=== PATIENT | male | born 1935 | race Two or more races ===

== ENCOUNTER → 2017-07-21 | Outpatient (CLI) | payer OTHER ==
[2017-07-21 11:55] LABS: Basophils # (auto) 0 uL; Basophils % (auto) 0.6 % (0.0-2.0); Eosinophils # (auto) 0.1 uL; Eosinophils % (auto) 0.7 % (0.0-7.0); Hematocrit 47.3 % (41.0-53.0); Lymphocytes # (auto) 1.4 uL; Lymphocytes % (auto) 17.4 % (10.0-50.0); Mean Corpuscular Hemoglobin 32.1 pg (28.0-32.0); Mean Corpuscular Hgb Conc. 33.9 g/dL (32.0-36.0); Mean Corpuscular Volume 94.7 fL (80.0-100.0); Monocytes # (auto) 0.8 uL; Monocytes % (auto) 9.7 % (0.0-12.0); Neutrophils # (auto) 5.6 uL; Neutrophils % (auto) 71.6 % (37.0-80.0); Nucleated Red Blood Cells % 0.1 %; Platelet Count (auto) 168 10^3/uL (140-450); Red Cell Distribution Width 13.7 % (11.8-14.3); White Blood Cell 7.8 10^3/uL (4.4-10.8)
[2017-07-21 14:01] LABS: Albumin 4.1 g/dL (3.4-5.0); BUN/Creatinine Ratio 20.4; Bilirubin, Total 0.8 mg/dL (0.2-1.0); Calcium 9.1 mg/dL (8.5-10.1); Potassium 4.6 mmol/L (3.5-5.1); Total Protein 7.8 g/dL (6.4-8.2)
== END | disposition home or self-care (01) ==
LOC: LAB 10:52
PROVIDERS: ATTEND Physician Assistant
DX: I12.9 Hypertensive chronic kidney disease with stage 1 through stage 4 chronic kidney disease, or unspecified chronic kidney disease (principal); N18.2 Chronic kidney disease, stage 2 (mild); E78.5 Hyperlipidemia, unspecified; Z95.1 Presence of aortocoronary bypass graft; B02.29 Other postherpetic nervous system involvement; R79.89 Other specified abnormal findings of blood chemistry
CPT/HCPCS: 36415; 80053; 80061; 84153; 85025

== ENCOUNTER 2019-12-18 10:22 | Emergency (ER) | payer OTHER ==
[~2019-12-18] VITALS: Ht 165.1 cm; Wt 59.0 kg
[2019-12-18 10:33] VITALS: BP 110/67
[2019-12-18 12:00] LABS: Basophils # (auto) 0.1 10 ^3/uL (0-0.2); Basophils % (auto) 0.6 % (0.0-2.0); Eosinophils # (auto) 0.1 10 ^3/uL (0-0.8); Eosinophils % (auto) 1.1 % (0.0-7.0); Hematocrit 42.9 % (41.0-53.0); Hemoglobin 14.3 g/dL (13.5-17.5); Lymphocytes % (auto) 10.2 % (10.0-50.0); Mean Corpuscular Hgb Conc. 33.5 g/dL (32.0-36.0); Mean Corpuscular Volume 89.5 fL (80.0-100.0); Monocytes # (auto) 1.3 10 ^3/uL (0-1.3); Monocytes % (auto) 12.7 % (0.0-12.0); Neutrophils # (auto) 7.5 10 ^3/uL (1.6-8.6); Neutrophils % (auto) 75.4 % (37.0-80.0); Platelet Count (auto) 166 10^3/uL (140-450); Red Blood Cells 4.79 10^6/uL (4.5-5.90); Red Cell Distribution Width 15.2 % (11.8-14.3); White Blood Cell 9.9 10^3/uL (4.4-10.8)
[2019-12-18 12:15] LABS: Albumin 3.6 g/dL (3.4-5.0); Anion Gap 5 (5-15); Blood Urea Nitrogen 17 mg/dL (7-18); Calcium 8.8 mg/dL (8.5-10.1); Carbon Dioxide 33 mmol/L (21-32); Chloride 101 mmol/L (98-107); Glucose 101 mg/dL (74-106); Magnesium 2.5 mg/dL (1.6-2.6); Potassium 3.4 mmol/L (3.5-5.1); Sodium 139 mmol/L (136-145)
[2019-12-18 12:18] LABS: INR 0.99 (0.9-1.15)
[2019-12-18 12:22] LABS: Alanine Aminotransferase 17 U/L (16-61); Alkaline Phosphatase 115 U/L (45-117); Aspartate Aminotransferase 20 U/L (15-37); BUN/Creatinine Ratio 17.5; Bilirubin, Total 1.1 mg/dL (0.2-1.0); GFR African American 95 mL/min; GFR Non-African American 79 mL/min; Total Protein 6.8 g/dL (6.4-8.2)
== END 2019-12-18 15:15 | disposition left against medical advice (07) ==
LOC: ER 10:22
DX: R51 Headache (principal); Z53.21 Procedure and treatment not carried out due to patient leaving prior to being seen by health care provider
CPT/HCPCS: 36415; 80053; 83735; 84484; 85025; 85610; 93005

== ENCOUNTER → 2020-02-07 | Outpatient (CLI) | payer OTHER ==
[2020-02-07 08:31] LABS: Basophils # (auto) 0.1 10 ^3/uL (0-0.2); Basophils % (auto) 0.7 % (0.0-2.0); Eosinophils # (auto) 0.2 10 ^3/uL (0-0.8); Eosinophils % (auto) 2.4 % (0.0-7.0); Hematocrit 42.1 % (41.0-53.0); Hemoglobin 14.2 g/dL (13.5-17.5); Lymphocytes # (auto) 1.4 10 ^3/uL (0.4-5.4); Lymphocytes % (auto) 18.6 % (10.0-50.0); Mean Corpuscular Hemoglobin 30.2 pg (28.0-32.0); Mean Corpuscular Hgb Conc. 33.8 g/dL (32.0-36.0); Mean Corpuscular Volume 89.5 fL (80.0-100.0); Monocytes # (auto) 0.9 10 ^3/uL (0-1.3); Monocytes % (auto) 12.4 % (0.0-12.0); Neutrophils % (auto) 65.9 % (37.0-80.0); Nucleated Red Blood Cells % 0.1 %; Platelet Count (auto) 172 10^3/uL (140-450); Red Blood Cells 4.71 10^6/uL (4.5-5.90); Red Cell Distribution Width 14.7 % (11.8-14.3); White Blood Cell 7.6 10^3/uL (4.4-10.8)
[2020-02-07 09:13] LABS: Albumin 3.5 g/dL (3.4-5.0); Calcium 8.5 mg/dL (8.5-10.1); Potassium 3.8 mmol/L (3.5-5.1)
[2020-02-07 09:19] LABS: BUN/Creatinine Ratio 14.6; Bilirubin, Total 0.8 mg/dL (0.2-1.0); Total Protein 6.6 g/dL (6.4-8.2)
== END | disposition home or self-care (01) ==
LOC: LAB 08:15
PROVIDERS: ATTEND Physician Assistant
DX: I12.9 Hypertensive chronic kidney disease with stage 1 through stage 4 chronic kidney disease, or unspecified chronic kidney disease (principal); N18.2 Chronic kidney disease, stage 2 (mild); R35.1 Nocturia; I50.22 Chronic systolic (congestive) heart failure; D69.6 Thrombocytopenia, unspecified; E78.5 Hyperlipidemia, unspecified; R79.89 Other specified abnormal findings of blood chemistry
CPT/HCPCS: 36415; 80053; 80061; 84153; 85025

== ENCOUNTER → 2020-10-20 | Outpatient (CLI) | payer OTHER ==
[2020-10-20 10:02] LABS: Basophils # (auto) 0 10 ^3/uL (0-0.2); Basophils % (auto) 0.8 % (0.0-2.0); Eosinophils # (auto) 0.1 10 ^3/uL (0-0.8); Eosinophils % (auto) 1.6 % (0.0-7.0); Hematocrit 42.8 % (41.0-53.0); Hemoglobin 14.5 g/dL (13.5-17.5); Lymphocytes % (auto) 17.4 % (10.0-50.0); Mean Corpuscular Hemoglobin 30.5 pg (28.0-32.0); Mean Corpuscular Hgb Conc. 33.9 g/dL (32.0-36.0); Monocytes # (auto) 0.6 10 ^3/uL (0-1.3); Monocytes % (auto) 10.7 % (0.0-12.0); Neutrophils # (auto) 4.1 10 ^3/uL (1.6-8.6); Neutrophils % (auto) 69.5 % (37.0-80.0); Nucleated Red Blood Cells % 0.2 %; Platelet Count (auto) 122 10^3/uL (140-450); Red Blood Cells 4.76 10^6/uL (4.5-5.90); Red Cell Distribution Width 14.6 % (11.8-14.3); White Blood Cell 5.9 10^3/uL (4.4-10.8)
[2020-10-20 10:25] LABS: Albumin 3.5 g/dL (3.4-5.0); Calcium 8.6 mg/dL (8.5-10.1)
[2020-10-20 10:31] LABS: BUN/Creatinine Ratio 20.2; Bilirubin, Total 0.6 mg/dL (0.2-1.0); Total Protein 6.6 g/dL (6.4-8.2)
== END | disposition home or self-care (01) ==
LOC: LAB 09:32
PROVIDERS: ATTEND Internal Medicine
DX: I10 Essential (primary) hypertension (principal); R35.1 Nocturia
CPT/HCPCS: 36415; 80053; 80061; 84153; 84403; 84443; 85025

== ENCOUNTER → 2020-11-27 | Outpatient (CLI) | payer OTHER ==
[2020-11-27 08:36] LABS: Basophils # (auto) 0.1 10 ^3/uL (0-0.2); Basophils % (auto) 0.9 % (0.0-2.0); Eosinophils # (auto) 0.2 10 ^3/uL (0-0.8); Eosinophils % (auto) 2.8 % (0.0-7.0); Hematocrit 43.7 % (41.0-53.0); Hemoglobin 14.6 g/dL (13.5-17.5); Lymphocytes # (auto) 1.4 10 ^3/uL (0.4-5.4); Lymphocytes % (auto) 17.7 % (10.0-50.0); Mean Corpuscular Hgb Conc. 33.4 g/dL (32.0-36.0); Mean Corpuscular Volume 89.8 fL (80.0-100.0); Monocytes % (auto) 13.3 % (0.0-12.0); Neutrophils % (auto) 65.3 % (37.0-80.0); Red Blood Cells 4.87 10^6/uL (4.5-5.90); Red Cell Distribution Width 15.3 % (11.8-14.3); White Blood Cell 7.7 10^3/uL (4.4-10.8)
[2020-11-27 09:49] LABS: Albumin 3.4 g/dL (3.4-5.0); Calcium 8.4 mg/dL (8.5-10.1); Potassium 3.7 mmol/L (3.5-5.1)
[2020-11-27 09:53] LABS: BUN/Creatinine Ratio 13.3; Bilirubin, Total 0.5 mg/dL (0.2-1.0); Total Protein 6.3 g/dL (6.4-8.2)
== END | disposition home or self-care (01) ==
LOC: LAB 07:56
PROVIDERS: ATTEND Nurse Practitioner Family
DX: I50.22 Chronic systolic (congestive) heart failure (principal); N18.2 Chronic kidney disease, stage 2 (mild); E78.5 Hyperlipidemia, unspecified; R35.1 Nocturia
CPT/HCPCS: 36415; 80053; 80061; 84153; 85025

== ENCOUNTER → 2020-12-15 | Outpatient (CLI) | payer OTHER | END | disposition home or self-care (01) | LOC: XYW 09:33 | PROVIDERS: ATTEND Internal Medicine | DX: I08.8 Other rheumatic multiple valve diseases (principal); I50.22 Chronic systolic (congestive) heart failure | CPT/HCPCS: 93306 ==

== ENCOUNTER → 2020-12-18 | Outpatient (CLI) | payer OTHER | END | disposition home or self-care (01) | LOC: LAB 09:41 | PROVIDERS: ATTEND Physician Assistant | DX: Z20.822 Contact with and (suspected) exposure to COVID-19 (principal) | CPT/HCPCS: 36415; 87426 ==

== ENCOUNTER → 2020-12-21 | Outpatient (CLI) | payer OTHER ==
[~2020-12-21] VITALS: Ht 165.1 cm; Wt 59.0 kg
[~2020-12-21] MED LIST: ADENOSINE 50 MG in GIVE UN-DILUTED 0 ML IV STA
== END | disposition home or self-care (01) ==
LOC: XY 08:00
PROVIDERS: ATTEND Internal Medicine
DX: I10 Essential (primary) hypertension (principal); I25.10 Atherosclerotic heart disease of native coronary artery without angina pectoris; E78.5 Hyperlipidemia, unspecified; I35.1 Nonrheumatic aortic (valve) insufficiency
CPT/HCPCS: 78452; 93017; A9500; J0153

== ENCOUNTER → 2022-01-28 | Outpatient (CLI) | payer OTHER ==
[2022-01-28 11:50] LABS: Basophils # (auto) 0.1 10 ^3/uL (0-0.2); Basophils % (auto) 0.6 % (0.0-2.0); Eosinophils # (auto) 0.2 10 ^3/uL (0-0.8); Eosinophils % (auto) 2.2 % (0.0-7.0); Hematocrit 41.8 % (41.0-53.0); Hemoglobin 13.8 g/dL (13.5-17.5); Lymphocytes # (auto) 1.2 10 ^3/uL (0.4-5.4); Lymphocytes % (auto) 12.9 % (10.0-50.0); Mean Corpuscular Hgb Conc. 33.1 g/dL (32.0-36.0); Mean Corpuscular Volume 93.7 fL (80.0-100.0); Monocytes # (auto) 0.8 10 ^3/uL (0-1.3); Monocytes % (auto) 8.5 % (0.0-12.0); Neutrophils % (auto) 75.8 % (37.0-80.0); Red Blood Cells 4.47 10^6/uL (4.5-5.90); Red Cell Distribution Width 14.9 % (11.8-14.3); White Blood Cell 9.3 10^3/uL (4.4-10.8)
[2022-01-28 12:55] LABS: Potassium 4.4 mmol/L (3.5-5.1)
[2022-01-28 13:45] LABS: Albumin 3.2 g/dL (3.4-5.0); BUN/Creatinine Ratio 15.2; Bilirubin, Total 0.7 mg/dL (0.2-1.0); Calcium 8.3 mg/dL (8.5-10.1); Total Protein 6.4 g/dL (6.4-8.2)
== END | disposition home or self-care (01) ==
LOC: LAB 11:23
PROVIDERS: ATTEND Nurse Practitioner Family
DX: Z00.00 Encounter for general adult medical examination without abnormal findings (principal); E78.5 Hyperlipidemia, unspecified; R35.1 Nocturia; I42.9 Cardiomyopathy, unspecified
CPT/HCPCS: 36415; 80053; 80061; 84153; 85025

== ENCOUNTER 2022-04-04 15:57 | Inpatient (IN) | payer OTHER ==
[~2022-04-04] VITALS: Ht 165.1 cm; Wt 61.5 kg
[2022-04-04] MEDS ORDERED: SODIUM CHLORIDE 0.9% 1,000 ML IV ONE ×2 (16:30→18:15)
[2022-04-04] MEDS ORDERED: ACETAMINOPHEN 325 MG TAB PO ONE (16:30)
[2022-04-04] MEDS ORDERED: IBUPROFEN 400 MG TAB PO ONE (16:30)
[2022-04-04 17:02] LABS: Hemoglobin 14.8 g/dL (13.5-17.5); Mean Corpuscular Hemoglobin 30.5 pg (28.0-32.0); White Blood Cell 11.7 10^3/uL (4.4-10.8)
[2022-04-04 17:07] LABS: Hematocrit 44.1 % (41.0-53.0); Mean Corpuscular Hgb Conc. 33.5 g/dL (32.0-36.0); Mean Corpuscular Volume 90.9 fL (80.0-100.0); Red Blood Cells 4.86 10^6/uL (4.5-5.90); Red Cell Distribution Width 13.8 % (11.8-14.3)
[2022-04-04 17:10] LABS: Basophils % (manual) 0 (0.0-2.0); Blast Cells 0; Eosinophils % (manual) 0 (0-7); Metamyelocytes % 0; Myelocytes % 0; Promyelocytes % 0; Reactive Lymphocytes 0
[2022-04-04 17:18] LABS: Albumin 3.2 g/dL (3.4-5.0); Calcium 8.5 mg/dL (8.5-10.1); Potassium 4.2 mmol/L (3.5-5.1)
[2022-04-04 17:22] LABS: BUN/Creatinine Ratio 17.3; Bilirubin, Total 0.5 mg/dL (0.2-1.0); Total Protein 6.6 g/dL (6.4-8.2)
[2022-04-04] MEDS ORDERED: ERYTHROMY OPTH OINT 5mg/gm 1gm or 3.5gm tube OP ONE (18:07)
[2022-04-04] MEDS ORDERED: ERYTHROMY OPTH OINT 5mg/gm 1gm or 3.5gm tube OP SCH (18:15)
[2022-04-04] MEDS: ERYTHROMY OPTH OINT 5mg/gm 1gm or 3.5gm tube OP SCH ×2 (18:26→23:36)
[2022-04-04] MEDS: AMPICILLIN & SULBACTAM SODIUM 3 GM in SODIUM CHL 0.9% 100 ML IV SCH ×2 (18:36→23:36)
[2022-04-04 18:40] LABS: Band Neutrophils % (manual) 5; Lymphocytes % (manual) 13 (10.0-50.0); Monocytes % (manual) 20 (0-12)
[2022-04-04] MEDS ORDERED: SODIUM CHLORIDE 0.9% 1,000 ML IV SCH (18:45)
[2022-04-04] MEDS ORDERED: ACETAMINOPHEN 325 MG TAB PO PRN (18:45)
[2022-04-04 19:44] LABS: Urine Bacteria FEW /hpf (None Seen); Urine Blood TRACE /uL (Negative); Urine Specific Gravity 1.008 (1.001-1.035); Urine WBC <1 /hpf (0 - 3)
[2022-04-04 22:00] VITALS: BP 131/77
[2022-04-04] MEDS: ASCORBIC ACID 500 MG TAB PO SCH (23:36)
[2022-04-05] MEDS ORDERED: GABA100C9 PO (04:02)
[2022-04-05] MEDS ORDERED: ROPI0.254 PO (04:02)
[2022-04-05] MEDS ORDERED: ASPI1TAB20 PO (04:02)
[2022-04-05] MEDS ORDERED: ATOR10TA PO (04:02)
[2022-04-05 05:00] VITALS: BP 149/87
[2022-04-05 06:11] LABS: Potassium 4.2 mmol/L (3.5-5.1)
[2022-04-05 06:18] LABS: BUN/Creatinine Ratio 17.3; Bilirubin, Total 0.7 mg/dL (0.2-1.0); Calcium 8.1 mg/dL (8.5-10.1); Total Protein 6.2 g/dL (6.4-8.2)
[2022-04-05] MEDS: AMPICILLIN & SULBACTAM SODIUM 3 GM in SODIUM CHL 0.9% 100 ML IV SCH ×2 (06:27→10:26)
[2022-04-05] MEDS: ERYTHROMY OPTH OINT 5mg/gm 1gm or 3.5gm tube OP SCH ×2 (06:28→10:26)
[2022-04-05 09:00] VITALS: BP 151/82
[2022-04-05] MEDS ORDERED: ERY05OO OP (09:58)
[2022-04-05] MEDS ORDERED: LEVO500T31 PO (09:58)
[2022-04-05] MEDS ORDERED: ZINC SULFATE 220mg CAP or TAB PO SCH (10:00)
[2022-04-05] MEDS ORDERED: AZITHROMYCIN 500MG/ 250ML 250 ML IV SCH (10:00)
[2022-04-05] MEDS ORDERED: MULTIPLE VITAMIN TAB PO SCH (10:00)
[2022-04-05] MEDS ORDERED: ENOXAPARIN SOD 40 MG/0.4 ML SYRINGE SC SCH (10:00)
[2022-04-05] MEDS: ASCORBIC ACID 500 MG TAB PO SCH (10:20)
== END 2022-04-05 12:10 | disposition home or self-care (01) | DRG 202 ==
LOC: ER 15:57 → OVERFLOW 18:40 → EAST 21:48
PROVIDERS: ADMIT Nurse Practitioner Family; ATTEND Nurse Practitioner Family
DX: J20.9 Acute bronchitis, unspecified (principal); J18.9 Pneumonia, unspecified organism; H10.33 Unspecified acute conjunctivitis, bilateral; I25.2 Old myocardial infarction; Z20.822 Contact with and (suspected) exposure to COVID-19; Z87.891 Personal history of nicotine dependence; Z95.1 Presence of aortocoronary bypass graft
CPT/HCPCS: 36415; 71045; 80053; 81001; 83605; 83880; 84484; 85007; 85027; 87040; 87426; 87804; 87807; 93005; 96360; 96361; G0378

== ENCOUNTER 2022-11-04 12:04 | Inpatient (IN) | payer OTHER ==
[~2022-11-04] VITALS: Ht 165.1 cm; Wt 63.2 kg
[~2022-11-04 12:04] MED LIST changes: -ADENOSINE 50 MG in GIVE UN-DILUTED 0 ML IV STA; +ASPI1TAB20 PO; +ATOR10TA PO; +ERY05OO OP; +GABA-1308 PO; +LEVO500T31 PO; +ROPI0.254 PO
[2022-11-04 13:32] LABS: Basophils # (auto) 0.1 10 ^3/uL (0-0.2); Basophils % (auto) 0.8 % (0.0-2.0); Eosinophils # (auto) 0.1 10 ^3/uL (0-0.8); Eosinophils % (auto) 1.8 % (0.0-7.0); Hematocrit 41.2 % (41.0-53.0); Hemoglobin 13.7 g/dL (13.5-17.5); Lymphocytes # (auto) 0.9 10 ^3/uL (0.4-5.4); Lymphocytes % (auto) 12.5 % (10.0-50.0); Mean Corpuscular Hemoglobin 30.5 pg (28.0-32.0); Mean Corpuscular Hgb Conc. 33.2 g/dL (32.0-36.0); Monocytes # (auto) 0.8 10 ^3/uL (0-1.3); Monocytes % (auto) 11.2 % (0.0-12.0); Neutrophils # (auto) 5.2 10 ^3/uL (1.6-8.6); Neutrophils % (auto) 73.7 % (37.0-80.0); Red Blood Cells 4.47 10^6/uL (4.5-5.90); Red Cell Distribution Width 14.8 % (11.8-14.3)
[2022-11-04 14:17] LABS: Albumin 3.4 g/dL (3.4-5.0); Potassium 4.2 mmol/L (3.5-5.1)
[2022-11-04 14:22] LABS: BUN/Creatinine Ratio 25.3 (10.0-20.0); Bilirubin, Total 0.4 mg/dL (0.2-1.0); Total Protein 6.1 g/dL (6.4-8.2)
[2022-11-04 15:18] LABS: Urine Bacteria NONE SEEN /hpf (None Seen); Urine Blood TRACE /uL (Negative); Urine Mucus FEW (None Seen); Urine Specific Gravity 1.035 (1.001-1.035); Urine WBC 1 /hpf (0 - 3)
[2022-11-04] MEDS ORDERED: CLINDAMYCIN HCL 150 MG CAP PO ONE (16:00)
[2022-11-04] MEDS ORDERED: cefTRIAXone 1GM/50ML D5W 50 ML IV ONE (16:00)
[2022-11-04 16:29] VITALS: BP 146/90
[2022-11-04] MEDS ORDERED: NITROGLYCERIN 0.4 MG SL TAB SL PRN ×2 (18:00→18:15)
[2022-11-04] MEDS ORDERED: ENOXAPARIN SOD 40 MG/0.4 ML SYRINGE SC SCH ×2 (18:00→18:15)
[2022-11-04] MEDS ORDERED: MORPHINE SULFATE INJ 2 MG/ml SYRG IV PRN ×4 (18:00→18:15)
[2022-11-04] MEDS ORDERED: ACETAMINOPHEN 325 MG TAB PO PRN ×2 (18:00→18:15)
[2022-11-04] MEDS ORDERED: HYDROcodone-ACET 5/325MG TAB PO PRN ×2 (18:00→18:15)
[2022-11-04] MEDS ORDERED: GABAPENTIN 100 MG CAP PO SCH (22:00)
[2022-11-04] MEDS ORDERED: CLINDAMYCIN HCL 150 MG CAP PO SCH ×4 (22:00)
[2022-11-04] MEDS ORDERED: ATORVASTATIN 20 MG TAB PO SCH (22:00)
[2022-11-05] MEDS ORDERED: cefTRIAXone 1GM/50ML D5W 50 ML IV SCH ×4 (09:00)
[2022-11-05] MEDS ORDERED: ASPirin-EC 81 mg tab PO SCH (10:00)
== END 2022-11-04 18:03 | disposition left against medical advice (07) | DRG 603 ==
LOC: ER 12:04 → OVERFLOW 18:02 → ER 18:03 → OVERFLOW 18:03
PROVIDERS: ADMIT Registered Nurse; ATTEND Registered Nurse
DX: L03.116 Cellulitis of left lower limb (principal); I87.8 Other specified disorders of veins; S81.802A Unspecified open wound, left lower leg, initial encounter; X58.XXXA Exposure to other specified factors, initial encounter; Z53.29 Procedure and treatment not carried out because of patient's decision for other reasons; Z87.891 Personal history of nicotine dependence; I25.2 Old myocardial infarction; Z95.1 Presence of aortocoronary bypass graft; Y93.89 Activity, other specified; Y92.89 Other specified places as the place of occurrence of the external cause; Y99.8 Other external cause status
CPT/HCPCS: 36415; 80053; 81001; 83605; 85025; 87040; 96365; G0378; J0696

== ENCOUNTER 2022-11-12 14:55 | Inpatient (IN) | payer OTHER ==
[~2022-11-12] VITALS: Ht 165.1 cm; Wt 64.5 kg
[2022-11-12] MEDS ORDERED: SODIUM CHLORIDE 0.9% 500 ML IV ONE (15:30)
[2022-11-12] MEDS ORDERED: CLINDAMYCIN 600MG IV 50 ML IV ONE (15:30)
[2022-11-12 15:47] LABS: Basophils # (auto) 0.1 10 ^3/uL (0-0.2); Basophils % (auto) 0.8 % (0.0-2.0); Eosinophils # (auto) 0.2 10 ^3/uL (0-0.8); Eosinophils % (auto) 2.5 % (0.0-7.0); Hematocrit 41.8 % (41.0-53.0); Hemoglobin 13.8 g/dL (13.5-17.5); Lymphocytes # (auto) 1.1 10 ^3/uL (0.4-5.4); Lymphocytes % (auto) 16.2 % (10.0-50.0); Mean Corpuscular Hemoglobin 30.6 pg (28.0-32.0); Mean Corpuscular Hgb Conc. 32.9 g/dL (32.0-36.0); Mean Corpuscular Volume 93.1 fL (80.0-100.0); Monocytes # (auto) 0.7 10 ^3/uL (0-1.3); Neutrophils # (auto) 4.7 10 ^3/uL (1.6-8.6); Neutrophils % (auto) 70.5 % (37.0-80.0); Nucleated Red Blood Cells % 0.1 %; Red Cell Distribution Width 14.9 % (11.8-14.3); White Blood Cell 6.7 10^3/uL (4.4-10.8)
[2022-11-12 16:04] LABS: Albumin 3.3 g/dL (3.4-5.0); Calcium 8.5 mg/dL (8.5-10.1); Potassium 4.3 mmol/L (3.5-5.1)
[2022-11-12 16:07] LABS: BUN/Creatinine Ratio 23.5 (10.0-20.0); Bilirubin, Total 0.4 mg/dL (0.2-1.0); Total Protein 6.6 g/dL (6.4-8.2)
[2022-11-12] MEDS ORDERED: cefTRIAXone 1GM/50ML D5W 50 ML IV ONE (16:30)
[2022-11-12] MEDS ORDERED: ACETAMINOPHEN 325 MG TAB PO PRN (19:15)
[2022-11-13] MEDS ORDERED: ROSU10TA64 PO (02:37)
[2022-11-13] MEDS ORDERED: HYDR-4902 PO (02:37)
[2022-11-13] MEDS ORDERED: ROPI3TAB4 PO (02:37)
[2022-11-13 05:00] VITALS: BP 141/71
[2022-11-13 08:12] LABS: Basophils # (auto) 0 10 ^3/uL (0-0.2); Basophils % (auto) 0.7 % (0.0-2.0); Eosinophils # (auto) 0.2 10 ^3/uL (0-0.8); Eosinophils % (auto) 3.1 % (0.0-7.0); Hematocrit 41.8 % (41.0-53.0); Hemoglobin 13.6 g/dL (13.5-17.5); Lymphocytes # (auto) 1.1 10 ^3/uL (0.4-5.4); Lymphocytes % (auto) 18.8 % (10.0-50.0); Mean Corpuscular Hgb Conc. 32.6 g/dL (32.0-36.0); Mean Corpuscular Volume 94.8 fL (80.0-100.0); Monocytes # (auto) 0.7 10 ^3/uL (0-1.3); Monocytes % (auto) 11.9 % (0.0-12.0); Neutrophils # (auto) 3.9 10 ^3/uL (1.6-8.6); Neutrophils % (auto) 65.5 % (37.0-80.0); Nucleated Red Blood Cells % 0.1 %; Red Blood Cells 4.41 10^6/uL (4.5-5.90); Red Cell Distribution Width 14.9 % (11.8-14.3); White Blood Cell 5.9 10^3/uL (4.4-10.8)
[2022-11-13 09:00] VITALS: BP 140/81
[2022-11-13] MEDS ORDERED: cefTRIAXone 1GM/50ML D5W 50 ML IV SCH (09:00)
[2022-11-13 09:42] LABS: Albumin 2.8 g/dL (3.4-5.0); Calcium 7.8 mg/dL (8.5-10.1); Potassium 3.9 mmol/L (3.5-5.1)
[2022-11-13 09:45] LABS: BUN/Creatinine Ratio 24.4 (10.0-20.0)
[2022-11-13 09:47] LABS: Bilirubin, Total 0.4 mg/dL (0.2-1.0); Total Protein 5.7 g/dL (6.4-8.2)
[2022-11-13 13:00] VITALS: BP 149/94
[2022-11-13] MEDS ORDERED: CLIN-203 PO (15:58)
[2022-11-13 17:00] VITALS: BP 144/74
[2022-11-13 17:58] VITALS: BP 125/81
[2022-11-14 14:48] LABS: Hepatitis C Antibody Negative (Negative)
== END 2022-11-13 18:24 | disposition home or self-care (01) | DRG 603 ==
LOC: ER 14:55 → OVERFLOW 19:15 → EAST 23:32
PROVIDERS: ADMIT Nurse Practitioner Family; ATTEND Internal Medicine
DX: L03.116 Cellulitis of left lower limb (principal); L97.929 Non-pressure chronic ulcer of unspecified part of left lower leg with unspecified severity; E78.5 Hyperlipidemia, unspecified; G25.81 Restless legs syndrome; Z82.49 Family history of ischemic heart disease and other diseases of the circulatory system; I25.2 Old myocardial infarction; Z87.891 Personal history of nicotine dependence; Z95.1 Presence of aortocoronary bypass graft
CPT/HCPCS: 36415; 80053; 85025; 85652; 86803; 87205; 87340; 93971; G0378; J0696

== ENCOUNTER → 2022-12-20 | Outpatient (CLI) | payer OTHER ==
[~2022-12-20] MED LIST changes: +CLIN-203 PO; +HYDR-4902 PO; -LEVO500T31 PO; +ROPI3TAB4 PO; +ROSU10TA64 PO
[2022-12-20 09:55] LABS: Basophils # (auto) 0 10 ^3/uL (0-0.2); Basophils % (auto) 0.6 % (0.0-2.0); Eosinophils # (auto) 0.1 10 ^3/uL (0-0.8); Eosinophils % (auto) 1.7 % (0.0-7.0); Hematocrit 42.2 % (41.0-53.0); Hemoglobin 14.1 g/dL (13.5-17.5); Lymphocytes # (auto) 1.2 10 ^3/uL (0.4-5.4); Lymphocytes % (auto) 17.5 % (10.0-50.0); Mean Corpuscular Hgb Conc. 33.5 g/dL (32.0-36.0); Mean Corpuscular Volume 92.5 fL (80.0-100.0); Monocytes # (auto) 0.8 10 ^3/uL (0-1.3); Monocytes % (auto) 11.5 % (0.0-12.0); Neutrophils # (auto) 4.9 10 ^3/uL (1.6-8.6); Neutrophils % (auto) 68.7 % (37.0-80.0); Red Blood Cells 4.57 10^6/uL (4.5-5.90); Red Cell Distribution Width 14.7 % (11.8-14.3); White Blood Cell 7.1 10^3/uL (4.4-10.8)
[2022-12-20 10:16] LABS: Potassium 4.1 mmol/L (3.5-5.1)
[2022-12-20 10:33] LABS: Albumin 3.4 g/dL (3.4-5.0); BUN/Creatinine Ratio 17.3 (10.0-20.0); Bilirubin, Total 0.9 mg/dL (0.2-1.0); Calcium 8.4 mg/dL (8.5-10.1); Total Protein 6.5 g/dL (6.4-8.2)
== END | disposition home or self-care (01) ==
LOC: LAB 09:23
DX: R35.1 Nocturia (principal); I42.9 Cardiomyopathy, unspecified
CPT/HCPCS: 36415; 80053; 80061; 84153; 85025

== ENCOUNTER → 2022-12-23 | Outpatient (CLI) | payer OTHER | END | disposition home or self-care (01) | LOC: XYW 09:30 | DX: I08.3 Combined rheumatic disorders of mitral, aortic and tricuspid valves (principal); I25.810 Atherosclerosis of coronary artery bypass graft(s) without angina pectoris | CPT/HCPCS: 93306 ==

== ENCOUNTER → 2022-12-24 | Outpatient (CLI) | payer OTHER | END | disposition home or self-care (01) | LOC: LAB 13:43 | DX: I42.9 Cardiomyopathy, unspecified (principal); R35.1 Nocturia | CPT/HCPCS: 82274 ==

== ENCOUNTER → 2023-01-14 | Outpatient (CLI) | payer OTHER ==
[2023-01-14 10:35] LABS: Basophils # (auto) 0.1 10 ^3/uL (0-0.2); Basophils % (auto) 0.9 % (0.0-2.0); Eosinophils # (auto) 0.1 10 ^3/uL (0-0.8); Eosinophils % (auto) 1.8 % (0.0-7.0); Hematocrit 42.5 % (41.0-53.0); Hemoglobin 14.4 g/dL (13.5-17.5); Lymphocytes # (auto) 1.4 10 ^3/uL (0.4-5.4); Lymphocytes % (auto) 16.9 % (10.0-50.0); Mean Corpuscular Hemoglobin 31.4 pg (28.0-32.0); Mean Corpuscular Hgb Conc. 33.9 g/dL (32.0-36.0); Mean Corpuscular Volume 92.6 fL (80.0-100.0); Monocytes # (auto) 0.8 10 ^3/uL (0-1.3); Monocytes % (auto) 10.2 % (0.0-12.0); Neutrophils # (auto) 5.8 10 ^3/uL (1.6-8.6); Neutrophils % (auto) 70.2 % (37.0-80.0); Red Blood Cells 4.59 10^6/uL (4.5-5.90); Red Cell Distribution Width 14.7 % (11.8-14.3); White Blood Cell 8.3 10^3/uL (4.4-10.8)
[2023-01-14 11:45] LABS: Alanine Aminotransferase 11 U/L (7-40); Alkaline Phosphatase 66 U/L (46-116); Anion Gap 6.5 (5-15); Aspartate Aminotransferase 12 U/L (13-40); BUN/Creatinine Ratio 15.6 (10.0-20.0); Blood Urea Nitrogen 15 mg/dL (9-23); Calcium 8.2 mg/dL (8.5-10.1); Carbon Dioxide 26.5 mmol/L (20-30); Chloride 107 mmol/L (98-107); Glucose 90 mg/dL (74-106); LDL Cholesterol 31 mg/dL (< 100); Potassium 4.3 mmol/L (3.5-5.1); Sodium 140 mmol/L (136-145); Triglycerides 59 mg/dL (< 150)
[2023-01-14 11:46] LABS: Albumin 3.8 g/dL (3.2-4.8); Bilirubin, Direct 0.3 mg/dL (<0.3); Cholesterol 100 mg/dL (< 200); HDL Cholesterol 51 mg/dL (40-59)
[2023-01-14 11:47] LABS: Bilirubin, Total 0.7 mg/dL (0.2-1.0); Total Protein 5.8 g/dL (5.7-8.2)
== END | disposition home or self-care (01) ==
LOC: LAB 10:16
PROVIDERS: ATTEND Student in an Organized Health Care Education/Training Program
DX: I11.0 Hypertensive heart disease with heart failure (principal); I50.22 Chronic systolic (congestive) heart failure
CPT/HCPCS: 36415; 80053; 80061; 80076; 83036; 85025

== ENCOUNTER → 2023-03-25 | Outpatient (CLI) | payer OTHER ==
[~2023-03-25] VITALS: Ht 165.1 cm; Wt 59.0 kg
[~2023-03-25] MED LIST changes: +ADENOSINE 50 MG in GIVE UN-DILUTED 0 ML IV STA
== END | disposition home or self-care (01) ==
LOC: XYW 07:33
PROVIDERS: ATTEND Student in an Organized Health Care Education/Training Program
DX: I25.810 Atherosclerosis of coronary artery bypass graft(s) without angina pectoris (principal); E78.5 Hyperlipidemia, unspecified; I25.5 Ischemic cardiomyopathy
CPT/HCPCS: 78452; A9500; J0153; 93017

== ENCOUNTER → 2023-07-31 | Outpatient (CLI) | payer OTHER ==
[~2023-07-31] MED LIST changes: -ADENOSINE 50 MG in GIVE UN-DILUTED 0 ML IV STA
[2023-07-31 09:34] LABS: Basophils # (auto) 0 10 ^3/uL (0-0.2); Basophils % (auto) 0.7 % (0.0-2.0); Eosinophils # (auto) 0.2 10 ^3/uL (0-0.8); Eosinophils % (auto) 2.7 % (0.0-7.0); Hematocrit 44.4 % (41.0-53.0); Hemoglobin 14.7 g/dL (13.5-17.5); Lymphocytes # (auto) 1.3 10 ^3/uL (0.4-5.4); Lymphocytes % (auto) 19.5 % (10.0-50.0); Mean Corpuscular Hemoglobin 31.2 pg (28.0-32.0); Mean Corpuscular Hgb Conc. 33.1 g/dL (32.0-36.0); Mean Corpuscular Volume 94.1 fL (80.0-100.0); Monocytes # (auto) 0.8 10 ^3/uL (0-1.3); Monocytes % (auto) 11.3 % (0.0-12.0); Neutrophils # (auto) 4.4 10 ^3/uL (1.6-8.6); Neutrophils % (auto) 65.8 % (37.0-80.0); Red Blood Cells 4.72 10^6/uL (4.5-5.90); Red Cell Distribution Width 15.3 % (11.8-14.3); White Blood Cell 6.7 10^3/uL (4.4-10.8)
[2023-07-31 10:24] LABS: Alanine Aminotransferase 24 U/L (7-40); Alkaline Phosphatase 75 U/L (46-116); Anion Gap 6 (5-15); BUN/Creatinine Ratio 11.6 (10.0-20.0); Blood Urea Nitrogen 13 mg/dL (9-23); Calcium 8.8 mg/dL (8.5-10.1); Carbon Dioxide 29 mmol/L (20-30); Chloride 105 mmol/L (98-107); Glucose 83 mg/dL (74-106); LDL Cholesterol 27 mg/dL (< 100); Potassium 4.1 mmol/L (3.5-5.1); Sodium 140 mmol/L (136-145); Triglycerides 45 mg/dL (< 150)
[2023-07-31 10:25] LABS: Albumin 4.1 g/dL (3.2-4.8); Aspartate Aminotransferase 33 U/L (13-40); Cholesterol 108 mg/dL (< 200); HDL Cholesterol 66 mg/dL (40-59)
[2023-07-31 10:26] LABS: Total Protein 6.5 g/dL (5.7-8.2)
== END | disposition home or self-care (01) ==
LOC: LAB 09:23
PROVIDERS: ATTEND Student in an Organized Health Care Education/Training Program
DX: I25.810 Atherosclerosis of coronary artery bypass graft(s) without angina pectoris (principal); I50.22 Chronic systolic (congestive) heart failure; I42.9 Cardiomyopathy, unspecified
CPT/HCPCS: 36415; 80053; 80061; 85025

== ENCOUNTER 2024-01-28 13:32 | Emergency (ER) | payer OTHER ==
[~2024-01-28] VITALS: Ht 165.1 cm; Wt 49.6 kg
[~2024-01-28 13:32] MED LIST changes: -ROPI0.254 PO; +ROPI3TAB16 PO; -ROPI3TAB4 PO; +ROPI5TAB20 PO
[2024-01-28 16:26] LABS: Urine Bacteria FEW /hpf (None Seen); Urine Blood 2+ /uL (Negative); Urine Clarity Ex.Turbid (Clear); Urine Color Colorless (Yellow); Urine Protein, UAD 1+ (Negative); Urine Specific Gravity 1.018 (1.001-1.035); Urine Urobilinogen Normal (Negative); Urine WBC 1637 /hpf (0 - 3); Urine WBC Clumps PRESENT /hpf (None Seen); Urine pH 5.5 (5.0-9.0)
[2024-01-28 17:50] LABS: Basophils # (auto) 0.1 10 ^3/uL (0-0.2); Basophils % (auto) 0.5 % (0.0-2.0); Eosinophils # (auto) 0.1 10 ^3/uL (0-0.8); Eosinophils % (auto) 0.4 % (0.0-7.0); Hematocrit 46.1 % (41.0-53.0); Hemoglobin 15.6 g/dL (13.5-17.5); Lymphocytes # (auto) 0.7 10 ^3/uL (0.4-5.4); Lymphocytes % (auto) 5.7 % (10.0-50.0); Mean Corpuscular Hemoglobin 32.3 pg (28.0-32.0); Mean Corpuscular Hgb Conc. 33.9 g/dL (32.0-36.0); Mean Corpuscular Volume 95.2 fL (80.0-100.0); Monocytes # (auto) 1.5 10 ^3/uL (0-1.3); Monocytes % (auto) 12.7 % (0.0-12.0); Neutrophils # (auto) 9.7 10 ^3/uL (1.6-8.6); Neutrophils % (auto) 80.7 % (37.0-80.0); Nucleated Red Blood Cells % 0.1 %; Platelet Count (auto) 151 10^3/uL (140-450); Red Blood Cells 4.84 10^6/uL (4.5-5.90); Red Cell Distribution Width 13.9 % (11.8-14.3)
[2024-01-28 18:28] LABS: INR 1.07 (0.9-1.15); Prothrombin Time 11.3 sec (9.3-11.8)
[2024-01-28 18:29] LABS: Alanine Aminotransferase 25 U/L (7-40); Albumin 4.4 g/dL (3.2-4.8); Alkaline Phosphatase 103 U/L (46-116); Anion Gap 8 (5-15); Aspartate Aminotransferase 30 U/L (13-40); BUN/Creatinine Ratio 13.5 (10.0-20.0); Blood Urea Nitrogen 13 mg/dL (9-23); Calcium 9.8 mg/dL (8.7-10.4); Carbon Dioxide 29 mmol/L (20-30); Chloride 102 mmol/L (98-107); Glucose 77 mg/dL (74-106); Potassium 4.3 mmol/L (3.5-5.1); Sodium 139 mmol/L (136-145)
[2024-01-28 18:30] LABS: Bilirubin, Total 1.1 mg/dL (0.2-1.0); Total Protein 7.1 g/dL (5.7-8.2)
[2024-01-28 19:08] VITALS: PULSE 105; RESP 21; O2SAT 92
[2024-01-28] MEDS: cefTRIAXone 1GM/50ML D5W 50 ML IV ONE (19:30)
[2024-01-28] MEDS: levETIRAcetam 1000 mg/100ml 100 ML IV ONE (19:30)
[2024-01-28 19:43] VITALS: PULSE 105; RESP 13; O2SAT 92
[2024-01-28 20:40] VITALS: BP 106/55; PULSE 105; RESP 18; TEMP 98; O2SAT 93
[2024-01-30 23:06] LABS: Chlamydia Trachomatis, NAA Negative (Negative); Neisseria gonorrhoeae, NAA Negative (Negative)
== END 2024-01-28 20:51 | disposition short-term general hospital (02) ==
LOC: ER 13:32
DX: S00.83XA Contusion of other part of head, initial encounter (principal); N39.0 Urinary tract infection, site not specified; R94.31 Abnormal electrocardiogram [ECG] [EKG]; M25.511 Pain in right shoulder; I10 Essential (primary) hypertension; E78.5 Hyperlipidemia, unspecified; I25.2 Old myocardial infarction; I25.10 Atherosclerotic heart disease of native coronary artery without angina pectoris; Z98.890 Other specified postprocedural states; Z87.891 Personal history of nicotine dependence; Z79.899 Other long term (current) drug therapy; W11.XXXA Fall on and from ladder, initial encounter; Y93.89 Activity, other specified; Y92.59 Other trade areas as the place of occurrence of the external cause; Y99.8 Other external cause status
CPT/HCPCS: 36415; 70450; 71250; 72125; 73030; 74176; 80053; 81001; 83605; 83880; 84484; 85025; 85610; 87491; 87591; 96365; 96368; 99285; J0696; J1953

== ENCOUNTER 2024-07-06 05:31 | Inpatient (IN) | payer OTHER ==
[~2024-07-06] VITALS: Ht 165.1 cm; Wt 54.7 kg
--- NOTE | 2024-07-06 07:20 | DVH ---
EXAM: XR Chest, 1 View CLINICAL INDICATION: r/o pna TECHNIQUE: Frontal view of the chest. COMPARISON: CHEST XRAY 1 VIEW on DOS: 04/04/22, CXR1 on DOS: 04/04/22 FINDINGS: LUNGS AND PLEURAL SPACES: Left basilar atelectasis or pneumonia. No pneumothorax. HEART: Unremarkable. No cardiomegaly. MEDIASTINUM: Unremarkable. Normal mediastinal contour. BONES/JOINTS: Unremarkable. No acute fracture. OTHER FINDINGS: . IMPRESSION: Left basilar atelectasis or pneumonia.
--- NOTE | 2024-07-06 07:20 | DVH ---
CLINICAL INDICATION: C/o L hip pain. Possible fracture TECHNIQUE: Frontal view of the pelvis and frontal and lateral views of the left hip were obtained. Comparison: None FINDINGS/IMPRESSION: There is no evidence of acute fracture or dislocation. The visualized joint space is well maintained. The alignment is anatomic. Vascular calcifications noted. Degenerative changes in the hips.
[2024-07-06 07:34] LABS: Basophils # (auto) 0.1 10 ^3/uL (0-0.2); Basophils % (auto) 0.7 % (0.0-2.0); Eosinophils # (auto) 0.1 10 ^3/uL (0-0.8); Eosinophils % (auto) 1.5 % (0.0-7.0); Hematocrit 40.2 % (41.0-53.0); Hemoglobin 13.7 g/dL (13.5-17.5); Lymphocytes # (auto) 0.9 10 ^3/uL (0.4-5.4); Lymphocytes % (auto) 11.8 % (10.0-50.0); Mean Corpuscular Hemoglobin 31.5 pg (28.0-32.0); Mean Corpuscular Hgb Conc. 34.1 g/dL (32.0-36.0); Mean Corpuscular Volume 92.4 fL (80.0-100.0); Monocytes % (auto) 13.1 % (0.0-12.0); Neutrophils # (auto) 5.4 10 ^3/uL (1.6-8.6); Neutrophils % (auto) 72.9 % (37.0-80.0); Platelet Count (auto) 103 10^3/uL (140-450); Red Blood Cells 4.35 10^6/uL (4.5-5.90); Red Cell Distribution Width 13.9 % (11.8-14.3); White Blood Cell 7.4 10^3/uL (4.4-10.8)
[2024-07-06 07:40] LABS: Urine Bacteria None Seen /hpf (None Seen)
[2024-07-06 07:48] LABS: Alanine Aminotransferase 23 U/L (7-40); Albumin 4.3 g/dL (3.2-4.8); Alkaline Phosphatase 108 U/L (46-116); Anion Gap 5 (5-15); Aspartate Aminotransferase 18 U/L (13-40); BUN/Creatinine Ratio 21.6 (10.0-20.0); Blood Urea Nitrogen 21 mg/dL (9-23); Calcium 9.2 mg/dL (8.7-10.4); Carbon Dioxide 30 mmol/L (20-31); Chloride 106 mmol/L (98-107); Glucose 101 mg/dL (74-106); Potassium 4.2 mmol/L (3.5-5.1); Sodium 141 mmol/L (136-145)
[2024-07-06 07:49] LABS: Bilirubin, Total 0.6 mg/dL (0.2-1.0); Total Protein 6.4 g/dL (5.7-8.2)
[2024-07-06 08:04] LABS: Urine Blood Negative /uL (Negative); Urine Clarity Clear (Clear); Urine Color Light-Yellow (Yellow); Urine Protein, UAD Negative (Negative); Urine Specific Gravity 1.031 (1.001-1.035); Urine Squamous Epithelial Cell None Seen /hpf (<5); Urine Urobilinogen Normal (Negative); Urine WBC < 1 /HPF (0-3); Urine pH 5.5 (5.0-9.0)
[2024-07-06] MEDS: HYDROcodone-ACET 5/325MG TAB PO ONE (08:26)
[2024-07-06] MEDS: IOHEXOL 300 MG/ML 100ML BOTTLE IJ ONE (09:19)
--- NOTE | 2024-07-06 09:36 | DVH ---
Exam: CT CT CHEST/AB/PL W CON- IV ONLY History: Possible pna LLQ ab pain. Hx of hernia Comparison Study: CT scan of the chest abdomen pelvis dated 01/28/2024. Technique: Multidetector CT of the chest, abdomen and pelvis was performed from lower neck to pubic s ymphysis. 100 mL of Omnipaque 300 intravenous contrast was administered during this examination. Lucia nal and sagittal multiplanar reformats were performed by the technologist on a separate workstation. Radiation Dose Information: CT Dose: CTDI volume is 8.7 mGy. Dose-length product is 46.1 mGy*cm Findings: Lower neck: The thyroid is unremarkable. Lungs: Right lower lobe opacities and honeycombing which is similar to prior study. There is cyst in the right lower lobe measuring 1.1 cm. Central airways: Patent. Pleura: No pneumothorax. No pleural effusion. Heart/Vascular Structures: The heart is mildly enlarged. No pericardial effusion. Coronary artery c alcifications. Normal caliber thoracic aorta. No aneurysm or dissection. Atherosclerotic calcificatio ns in the aortic arch. No evidence of pulmonary embolism. Normal caliber main pulmonary artery. Lymph Nodes: No adenopathy Liver: The liver is normal in size. No focal lesions. Normal hepatic vascular enhancement. Gallbladder and Biliary Tree: Gallbladder is unremarkable. No biliary ductal dilatation. Spleen: Unremarkable Pancreas: The pancreas is normal in appearance without focal lesions or abnormal enhancement. Adrenal Glands: Unremarkable Kidneys: Kidneys demonstrate normal symmetric enhancement without focal lesions, calculi or hydroneph rosis. There is a cystic mass in the lower pole of the left kidney with enhancement of its wall. This measures 3.1 cm. Bladder: Unremarkable Stomach and bowel: The stomach is unremarkable. Right lower quadrant inguinal hernia is present cont aining loops of small bowel and ascending colon. There is upstream dilatation and fluid distention o f small-bowel loops. Extensive sigmoid diverticulosis without acute diverticulitis. The appendix is not visualized however no inflammatory changes noted. Intraperitoneal cavity: No pneumoperitoneum. No ascites. Lymphadenopathy: No mesenteric, retroperitoneal or periportal lymphadenopathy. Mesentery: Unremarkable. Soft tissues: The right inguinal hernia also contains mesenteric vasculature and fat. Vasculature: Extensive tortuosity of the abdominal aorta with atherosclerotic calcifications. No high -grade stenosis, aneurysm or occlusion. Atherosclerotic calcifications in the main aortic branches. Pelvic Organs: Prostate is enlarged. Seminal vesicles are unremarkable. Multilevel lumbar spondylos is. Multilevel thoracic spondylosis. S shaped thoracolumbar scoliosis. Status post median sternotomy. Musculoskeletal: No aggressive focal bony lesions, acute fractures or dislocation. IMPRESSION: 1. Patchy right lower lobe consolidation and fibrosis similar to prior chest CT. 2. Cardiomegaly. 3. Right inguinal hernia containing bowel loops with upstream dilatation of the small bowel compatibl e with small-bowel obstruction. 4. Sigmoid diverticulosis without acute diverticulitis. 5. Peripheral enhancement of a left renal cystic lesion which measures 3.1 cm. Nonemergent MRI of the abdomen without and with intravenous contrast using a renal protocol is suggested. All CT scans at this medical facility are performed using dose modulation techniques as appropriate t o a performed exam including the following: Automated exposure control was utilized; adjustment of th e MA and/or KV according to patient size; and use of iterative reconstruction technique.
--- NOTE | 2024-07-06 10:14 | ED.PDOC ---
GI ASSESSMENT HPI Comments This is a pleasant 88-year-old male with a history of CVA, myocardial infarction 15 years ago, coronary artery bypass graft, COPD and pneumonia who presents with a chief complaint of abdominal pain located to the left lower quadrant x1 day. That started suddenly prior to going to bed and pain. The pain is rated 10/10 and pain has been constant since. It is not able to get adequate relief with [id number] medications. Last bowel movement yesterday Denies fevers chills night sweats unintentional weight loss Denies nausea vomiting diarrhea Denies blood in the stool Denies sick contact with similar symptoms Denies new foods/medications Denies family history of GI cancer Chief Complaint: Lower Extremity Time Seen by MD: 06:24 Primary Care Provider: Baljit JOHANSEN Reviewed Notes: Nurses Notes, Medications, Allergies Allergies: Coded Allergies: NO KNOWN ALLERGIES (Unverified , 03/25/23) Home Meds Reported Medications Rosuvastatin Calcium (Rosuvastatin Calcium) 10 Mg Tab, 10 MG PO DAILY, TAB 11/13/22 Hydrocodone-Acetaminophen (Hydrocodone Bitartrate/AC 5-325 mg) 1 Tab Tab, 1 TAB PO PRN, TAB 11/13/22 Ropinirole Hydrochloride (Ropinirole Hcl) 3 Mg Tab, 3 MG PO QPM, TAB 11/13/22 Ropinirole Hydrochloride (Ropinirole Hcl) 0.25 Mg Tab, 0.25 MG PO, TAB 04/05/22 Aspirin (Aspir-81) 81 Mg Tab, 1 TAB PO DAILY, #30 TAB 5 Refills 04/05/22 Gabapentin (Gabapentin) 100 Mg Cap, 1 CAP PO TID, #90 CAP 2 Refills 04/05/22 Atorvastatin Calcium (Lipitor) 10 Mg Tab, 1 TAB PO QPM, #90 TAB 1 Refill 04/05/22 Discontinued Scripts Clindamycin HCl (Clindamycin Hydrochloride) 300 Mg Cap, 300 MG PO Q8HR for 7 Days, #21 CAP Prov:BEVERLEY ISAAC MD 11/13/22 Erythromycin (Erythromycin) 5 Mg/Gm Oin, 1 APPLIC OP Q6H for 10 Days, #1 OIN Prov:BEVERLEY ISAAC MD 04/05/22 Information Source: Patient Mode of Arrival: EMS Past Medical History PAST MEDICAL HISTORY: CAD, High Lipids, HTN, DC Surgical History: CABG, Tonsillectomy Family History Family History: Reviewed,noncontributory to illness, Family hx of heart kwan Social History Smoker: Quit Greater Than 1 Year Alcohol: Occasionally Drugs: Denies Drug Use Lives In: Home All Other Systems: Reviewed and Negative (Per HPI) Physical Exam General Appearance: No Apparent Distress, Normal HEENT: Normal ENT Inspection, Pharynx Normal, TMs Normal Neck: Full Range of Motion, Non-Tender, Normal, Normal Inspection Respiratory: Chest Non-Tender, Lungs Clear, No Accessory Muscle Use, No Respiratory Distress, Normal Breath Sounds Cardiovascular: No Edema, No JVD, No Murmur, No Gallop, Normal Peripheral Pulses, Regular Rate/Rhythm Breast Exam: Deferred Gastrointestinal: No Organomegaly, No Pulsatile Mass, Normal Bowel Sounds, Soft, Other (TTP to LLQ. Right inguinal hernia) Genitalia: Deferred Pelvic: Deferred Rectal: Deferred Extremities: No calf tenderness, Normal capillary refill, Normal inspection, Normal range of motion, Non-tender, No pedal edema Musculoskeletal : Apperance: Normal Neurologic: Alert, gage designer II-XII nml as Tested, No Motor Deficits, Normal Affect, Normal Mood, No Sensory Deficits Cerebellar Function: Normal Reflexes: Normal Skin: Dry, Normal Color, Warm Lymphatic: No Adenopathy Was a procedure done? Was a procedure done?: No GI differential Dx Differential Diagnosis: Appendicitis, Bowel Obstruction, Gastroenteritis X-Ray, Labs, Meds, VS Vital Signs Date Time Temp Pulse Resp B/P (MAP) Pulse Ox O2 Delivery O2 Flow Rate FiO2 07/06/24 08:09 58 16 07/06/24 08:09 97.8 58 16 142/78 (99) 95 97.8 07/06/24 05:38 98.3 64 16 122/66 (84) 96 Lab Test 07/06/24 07:42 07/06/24 07:21 07/06/24 06:47 Range/Units Troponin I High Sensitivity 14 13 </=54 ng/L Urine Color Light-yellow Yellow Urine Clarity Clear Clear Urine pH 5.5 5.0-9.0 Urine Specific [place] 1.031 1.001-1.035 Urine Protein Negative Negative Urine Ketones Negative Negative Urine Blood Negative Negative /uL Urine Nitrite Negative Negative Urine Bilirubin Negative Negative Urine Urobilinogen Normal Negative mg/dL Urine Leukocyte Esterase Negative Negative /uL Urine RBC 2 0 - 3 /hpf Urine Microscopic WBC < 1 0-3 /HPF Urine Squamous Epithelial Cells None seen <5 /hpf Urine Bacteria None seen None Seen /hpf Urine Glucose 4+ H Normal mg/dL White Blood Count 7.4 4.4-10.8 10^3/uL Red Blood Count 4.35 L 4.5-5.90 10^6/uL Hemoglobin 13.7 13.5-17.5 g/dL Hematocrit 40.2 L 41.0-53.0 % Mean Corpuscular Volume 92.4 80.0-100.0 fL Mean Corpuscular Hemoglobin 31.5 28.0-32.0 pg Mean Corpuscular Hemoglobin Concent 34.1 32.0-36.0 g/dL Red Cell Distribution Width 13.9 11.8-14.3 % Platelet Count 103 L 140-450 10^3/uL Mean Platelet Volume 8.5 6.9-10.8 fL Neutrophils (%) (Auto) 72.9 37.0-80.0 % Lymphocytes (%) (Auto) 11.8 10.0-50.0 % Monocytes (%) (Auto) 13.1 H 0.0-12.0 % Eosinophils (%) (Auto) 1.5 0.0-7.0 % Basophils (%) (Auto) 0.7 0.0-2.0 % Neutrophils # (Auto) 5.4 1.6-8.6 10 ^3/uL Lymphocytes # (Auto) 0.9 0.4-5.4 10 ^3/uL Monocytes # (Auto) 1.0 0-1.3 10 ^3/uL Eosinophils # (Auto) 0.1 0-0.8 10 ^3/uL Basophils # (Auto) 0.1 0-0.2 10 ^3/uL Nucleated Red Blood Cells 0.0 % Sodium Level 141 136-145 mmol/L Potassium Level 4.2 3.5-5.1 mmol/L Chloride Level 106 98-107 mmol/L Carbon Dioxide Level 30 20-31 mmol/L Anion Gap 5 5-15 Blood Urea Nitrogen 21 9-23 mg/dL Creatinine 0.97 0.700-1.30 mg/dL Glomerular Filtration Rate Calc 76 >90 mL/min BUN/Creatinine Ratio 21.6 H 10.0-20.0 Serum Glucose 101 74-106 mg/dL Lactic Acid Level 0.8 0.4-2.0 mmol/L Calcium Level 9.2 8.7-10.4 mg/dL Total Bilirubin 0.6 0.2-1.0 mg/dL Aspartate Amino Transferase (AST) 18 13-40 U/L Alanine Aminotransferase (ALT) 23 7-40 U/L Alkaline Phosphatase 108 46-116 U/L B-Type Natriuretic Peptide 165.40 0-100 pg/mL Total Protein 6.4 5.7-8.2 g/dL Albumin 4.3 3.2-4.8 g/dL PATIENT: LUIS SCHULZT: [id number]: [id number] : 1935 LOC: ER ROOM / BED: / AGE / SEX: 88 / M ADM STATUS: REG ER SERVICE [id number] ORDERING PHYSICIAN: HEENA FELIPE [employer] PROCEDURE(s): CAPIV - CT CHEST/AB/PL W CON- IV ONLY REASON: possible pna & LLQ ab pain. hx of hernia ORDER NUMBER(s): [id number], ACCESSION NUMBER(s): [id number] Exam: CT CT CHEST/AB/PL W CON- IV ONLY History: Possible pna LLQ ab pain. Hx of hernia Comparison Study: CT scan of the chest abdomen pelvis dated 01/28/2024. Technique: Multidetector CT of the chest, abdomen and pelvis was performed from lower neck to pubic symphysis. 100 mL of Omnipaque 300 intravenous contrast was administered during this examination. Coronal and sagittal multiplanar reformats were performed by the technologist on a separate workstation. Radiation Dose Information: CT Dose: CTDI volume is 8.7 mGy. Dose-length product is 46.1 mGy*cm Findings: Lower neck: The thyroid is unremarkable. Lungs: Right lower lobe opacities and honeycombing which is similar to prior study. There is cyst in the right lower lobe measuring 1.1 cm. Central airways: Patent. Pleura: No pneumothorax. No pleural effusion. Heart/Vascular Structures: The heart is mildly enlarged. No pericardial effusion. Coronary artery calcifications. Normal caliber thoracic aorta. No aneurysm or dissection. Atherosclerotic calcifications in the aortic arch. No evidence of pulmonary embolism. Normal caliber main pulmonary artery. Lymph Nodes: No adenopathy Liver: The liver is normal in size. No focal lesions. Normal hepatic vascular enhancement. Gallbladder and Biliary Tree: Gallbladder is unremarkable. No biliary ductal dilatation. Spleen: Unremarkable Pancreas: The pancreas is normal in appearance without focal lesions or abnormal enhancement. Adrenal Glands: Unremarkable Kidneys: Kidneys demonstrate normal symmetric enhancement without focal lesions, calculi or hydronephrosis. There is a cystic mass in the lower pole of the left kidney with enhancement of its wall. This measures 3.1 cm. Bladder: Unremarkable Stomach and bowel: The stomach is unremarkable. Right lower quadrant inguinal hernia is present containing loops of small bowel and ascending colon. There is upstream dilatation and fluid distention of small-bowel loops. Extensive sigmoid diverticulosis without acute diverticulitis. The appendix is not visualized however no inflammatory changes noted. Intraperitoneal cavity: No pneumoperitoneum. No ascites. Lymphadenopathy: No mesenteric, retroperitoneal or periportal lymphadenopathy. Mesentery: Unremarkable. Soft tissues: The right inguinal hernia also contains mesenteric vasculature and fat. Vasculature: Extensive tortuosity of the abdominal aorta with atherosclerotic calcifications. No high-grade stenosis, aneurysm or occlusion. Atherosclerotic calcifications in the main aortic branches. Pelvic Organs: Prostate is enlarged. Seminal vesicles are unremarkable. Multilevel lumbar spondylosis. Multilevel thoracic spondylosis. S shaped thoracolumbar scoliosis. Status post median sternotomy. Musculoskeletal: No aggressive focal bony lesions, acute fractures or dislocation. IMPRESSION: 1. Patchy right lower lobe consolidation and fibrosis similar to prior chest CT. 2. Cardiomegaly. 3. Right inguinal hernia containing bowel loops with upstream dilatation of the small bowel compatible with small-bowel obstruction. 4. Sigmoid diverticulosis without acute diverticulitis. 5. Peripheral enhancement of a left renal cystic lesion which measures 3.1 cm. Nonemergent MRI of the abdomen without and with intravenous contrast using a renal protocol is suggested. All CT scans at this medical facility are performed using dose modulation techniques as appropriate to a performed exam including the following: Automated exposure control was utilized; adjustment of the MA and/or KV according to patient size; and use of iterative reconstruction technique. ATED BY: JASMIN VOGT MD DICTATED DATE/TIME: 07/06/24933 SIGNED BY: JASMIN VOGT MD SIGNED DATE/TIME: 07/06/24933 CC: X-Ray, Labs, Meds, VS Comment This is a pleasant 88-year-old male with a history of CVA, myocardial infarction 15 years ago, coronary artery bypass graft, COPD and pneumonia who presents with a chief complaint of abdominal pain located to the left lower quadrant x1 day XR/CT shows Small Bowel Obstruction. Low suspicion for mesenteric ischemia, bowel gangrene, abscess, peritonitis. Consult: General Surgery The patient's presentation and chest x-ray/ct findings are also consistent with pneumonia. Procalcitonin level was obtained In the ED, the patient was given IV ceftriaxone and doxycycline to cover for community-acquired pneumonia, IV fluids for rehydration 1. Patchy right lower lobe consolidation and fibrosis similar to prior chest CT. 2. Cardiomegaly. 3. Right inguinal hernia containing bowel loops with upstream dilatation of the small bowel compatible with small-bowel obstruction. 4. Sigmoid diverticulosis without acute diverticulitis. 5. Peripheral enhancement of a left renal cystic lesion which measures 3.1 cm. Nonemergent MRI of the abdomen without and with intravenous contrast using a renal protocol is suggested. The patient's workup reveals that the patient needs further evaluation and/or treatment for the above medical conditions. Patient verbalized understanding of the above and is awaiting further evaluation by the admitting service. Time of 1ST Reevaluation: 10:01 Reevaluation 1ST: Improved Patient Education/Counseling: Diagnosis, Treatment Family Education/Counseling: Diagnosis, Treatment Departure 1 Departure Time of Disposition: 10:07 Impression: Primary Impression: Right lower lobe consolidation Additional Impressions: SBO (small bowel obstruction) Sigmoid diverticulosis Disposition: ADMITTED INPATIENT Condition: Fair Critical Care Note Critical Care Time?: No Stability Stability form required: No Heart Score Heart Score: Heart Score Response (Comments) Value History N/A 0 EKG N/A 0 Age N/A 0 Risk Factors N/A 0 Troponin N/A 0 Total 0 HEENA FELIPE NP Jul 06, 2024 10:14
[2024-07-06] MEDS: SODIUM CHLORIDE 0.9% 1,000 ML IV ONE (10:49)
[2024-07-06] MEDS: cefTRIAXone 1GM/50ML D5W 50 ML IV ONE (11:06)
[2024-07-06] MEDS: DOXYCYCLINE 100MG/100ML 100 ML IV ONE (11:10)
[2024-07-06] MEDS ORDERED: MORPHINE SULFATE INJ 2 MG/ml SYRG IV PRN (11:45)
[2024-07-06] MEDS ORDERED: NITROGLYCERIN 0.4 MG SL TAB SL PRN (11:45)
[2024-07-06] MEDS ORDERED: ONDANSETRON HCL 4 MG/2 ML VIAL IV PRN (11:45)
[2024-07-06] MEDS: SODIUM CHLORIDE 0.9% 1,000 ML IV SCH (11:45)
[2024-07-06] MEDS ORDERED: cefTRIAXone 1GM/50ML D5W 50 ML IV ONE (12:00)
--- NOTE | 2024-07-06 12:17 | DVHHP2 ---
History of Present Illness Reason for Visit: Left side pain History of Present Illness Jose Abdalla is an 88-year-old patient with past medical history of coronary artery disease, [place], COPD, CABG x 3, hypertension, and hyperlipidemia who came in complaining of pain on his left side. Patient complains of pain to his left side. He points to his hip as he explains the pain and states he has not been able to walk due to the pain. When asked to clarify if the pain is his hip or abdomen he is not sure. He does state that the pain radiates to his abdomen. Denies any fevers, diarrhea, nausea, or vomiting. States his last bowel movement was yesterday. Also states he knows that he has a hernia, but has not had it fixed because he didn't want surgery and it was not causing him any problems. States he did not know that he has diverticulosis or a renal cysts. Cardiovascular: CAD, HTN, NE, hyperipidemia Pulmonary: COPD Past Surgical History: CABG (x 3, 10-12 years ago), Tonsillectomy Smoke: No ALCOHOL: heavy (a glass of wine a night) Drugs: None Lives: with Family Domestic Violence: Neg Review of Systems Constitutional: No: Fever, Chills, Sweats, Weakness, Malaise, Other Eyes: No: Pain, Vision change, Conjunctivae inflammation, Eyelid inflammation, Other, Redness ENT: No: Ear pain, Ear discharge, Nose pain, Nose discharge, Nose congestion, Mouth pain, Mouth swelling, Throat pain, Throat swelling, Other Respiratory: No: Cough, Dry, Shortness of breath, SOB with excertion, Wheezing, Hemoptysis, Pleuritic Pain, Sputum, Wheezing, Other Cardiovascular: No: Chest Pain, Palpitations, Orthopnea, Paroxysmal Noc. Dyspnea, Edema, Lt Headedness, Other Gastrointestinal: No: Nausea, Vomiting, Abdominal Pain, Diarrhea, Constipation, Melena, Hematochezia, Other Genitourinary: No Dysuria, No Frequency, No Incontinence, No Hematuria, No Retention, No Other Musculoskeletal: leg pain (left hip radiatees to abdomen); No: other, neck pain, shoulder pain, arm pain, back pain, hand pain, foot pain Skin: No: Rash, Lesions, Jaundice, Bruising, Other Neurological: No: Weakness, Numbness, Incoordination, Change in speech, Confusion, Seizures, Other Allergies: Coded Allergies: NO KNOWN ALLERGIES (Unverified , 03/25/23) Medications Current Medications Medications Dose Ordered Sig/Perez Route Start Time Stop Time Status Last Admin Dose Admin Sodium Chloride 1,000 ml @ 60 mls/hr [id number] IV 07/06/24 11:45 UNV Ondansetron HCl 4 mg Q4HP PRN IV 07/06/24 11:45 UNV Nitroglycerin 0.4 mg Q5MINP PRN SL 07/06/24 11:45 UNV Morphine Sulfate 2 mg Q30M PRN IV 07/06/24 11:45 UNV Metronidazole 100 ml @ 100 mls/hr Q8HR IV 07/06/24 14:00 UNV Ceftriaxone Sodium 50 ml @ 100 mls/hr DAILY@09 IV 07/07/24 09:00 UNV Exam Vital Signs Vital Signs Date Time Temp Pulse Resp B/P (MAP) Pulse Ox O2 Delivery O2 Flow Rate FiO2 07/06/24 11:51 63 15 144/72 (96) 97 07/06/24 08:09 97.8 97.8 General Appearance: Alert, Oriented X3, Cooperative, mild distress HEENT: Atraumatic, PERRLA Respiratory: Clear to auscultation, Normal air movement Cardiovascular: Regular rate, Normal S1, Normal S2, No murmurs Abdominal: Normal bowel sounds, Soft Extremities: No clubbing, No cyanosis, No edema, Normal pulses Skin: No rashes, No breakdown, No significant lesion Neuro: Normal speech, Other (ambulates with walker, having difficulty due to pain) Psych/Mental Status: Mental status NL, Mood NL Labs/Xrays Labs Test 07/06/24 07:42 07/06/24 07:21 07/06/24 06:47 Range/Units Troponin I High Sensitivity 14 </=54 ng/L Urine Color Light-yellow Yellow Urine Clarity Clear Clear Urine pH 5.5 5.0-9.0 Urine Specific [place] 1.031 1.001-1.035 Urine Protein Negative Negative Urine Ketones Negative Negative Urine Blood Negative Negative /uL Urine Nitrite Negative Negative Urine Bilirubin Negative Negative Urine Urobilinogen Normal Negative mg/dL Urine Leukocyte Esterase Negative Negative /uL Urine RBC 2 0 - 3 /hpf Urine Microscopic WBC < 1 0-3 /HPF Urine Squamous Epithelial Cells None seen <5 /hpf Urine Bacteria None seen None Seen /hpf Urine Glucose 4+ H Normal mg/dL White Blood Count 7.4 4.4-10.8 10^3/uL Red Blood Count 4.35 L 4.5-5.90 10^6/uL Hemoglobin 13.7 13.5-17.5 g/dL Hematocrit 40.2 L 41.0-53.0 % Mean Corpuscular Volume 92.4 80.0-100.0 fL Mean Corpuscular Hemoglobin 31.5 28.0-32.0 pg Mean Corpuscular Hemoglobin Concent 34.1 32.0-36.0 g/dL Red Cell Distribution Width 13.9 11.8-14.3 % Platelet Count 103 L 140-450 10^3/uL Mean Platelet Volume 8.5 6.9-10.8 fL Neutrophils (%) (Auto) 72.9 37.0-80.0 % Lymphocytes (%) (Auto) 11.8 10.0-50.0 % Monocytes (%) (Auto) 13.1 H 0.0-12.0 % Eosinophils (%) (Auto) 1.5 0.0-7.0 % Basophils (%) (Auto) 0.7 0.0-2.0 % Neutrophils # (Auto) 5.4 1.6-8.6 10 ^3/uL Lymphocytes # (Auto) 0.9 0.4-5.4 10 ^3/uL Monocytes # (Auto) 1.0 0-1.3 10 ^3/uL Eosinophils # (Auto) 0.1 0-0.8 10 ^3/uL Basophils # (Auto) 0.1 0-0.2 10 ^3/uL Nucleated Red Blood Cells 0.0 % Sodium Level 141 136-145 mmol/L Potassium Level 4.2 3.5-5.1 mmol/L Chloride Level 106 98-107 mmol/L Carbon Dioxide Level 30 20-31 mmol/L Anion Gap 5 5-15 Blood Urea Nitrogen 21 9-23 mg/dL Creatinine 0.97 0.700-1.30 mg/dL Glomerular Filtration Rate Calc 76 >90 mL/min BUN/Creatinine Ratio 21.6 H 10.0-20.0 Serum Glucose 101 74-106 mg/dL Lactic Acid Level 0.8 0.4-2.0 mmol/L Calcium Level 9.2 8.7-10.4 mg/dL Total Bilirubin 0.6 0.2-1.0 mg/dL Aspartate Amino Transferase (AST) 18 13-40 U/L Alanine Aminotransferase (ALT) 23 7-40 U/L Alkaline Phosphatase 108 46-116 U/L B-Type Natriuretic Peptide 165.40 0-100 pg/mL Total Protein 6.4 5.7-8.2 g/dL Albumin 4.3 3.2-4.8 g/dL Exam: CT CT CHEST/AB/PL W CON- IV ONLY Findings: Lower neck: The thyroid is unremarkable. Lungs: Right lower lobe opacities and honeycombing which is similar to prior study. There is cyst in the right lower lobe measuring 1.1 cm. Central airways: Patent. Pleura: No pneumothorax. No pleural effusion. Heart/Vascular Structures: The heart is mildly enlarged. No pericardial effusion. Coronary artery calcifications. Normal caliber thoracic aorta. No aneurysm or dissection. Atherosclerotic calcifications in the aortic arch. No evidence of pulmonary embolism. Normal caliber main pulmonary artery. Lymph Nodes: No adenopathy Liver: The liver is normal in size. No focal lesions. Normal hepatic vascular enhancement. Gallbladder and Biliary Tree: Gallbladder is unremarkable. No biliary ductal dilatation. Spleen: Unremarkable Pancreas: The pancreas is normal in appearance without focal lesions or abnormal enhancement. Adrenal Glands: Unremarkable Kidneys: Kidneys demonstrate normal symmetric enhancement without focal lesions, calculi or hydronephrosis. There is a cystic mass in the lower pole of the left kidney with enhancement of its wall. This measures 3.1 cm. Bladder: Unremarkable Stomach and bowel: The stomach is unremarkable. Right lower quadrant inguinal hernia is present containing loops of small bowel and ascending colon. There is upstream dilatation and fluid distention of small-bowel loops. Extensive sigmoid diverticulosis without acute diverticulitis. The appendix is not visualized however no inflammatory changes noted. Intraperitoneal cavity: No pneumoperitoneum. No ascites. Lymphadenopathy: No mesenteric, retroperitoneal or periportal lymphadenopathy. Mesentery: Unremarkable. Soft tissues: The right inguinal hernia also contains mesenteric vasculature and fat. Vasculature: Extensive tortuosity of the abdominal aorta with atherosclerotic calcifications. No high-grade stenosis, aneurysm or occlusion. Atherosclerotic calcifications in the main aortic branches. Pelvic Organs: Prostate is enlarged. Seminal vesicles are unremarkable. Multilevel lumbar spondylosis. Multilevel thoracic spondylosis. S shaped thoracolumbar scoliosis. Status post median sternotomy. Musculoskeletal: No aggressive focal bony lesions, acute fractures or dislocation. IMPRESSION: 1. Patchy right lower lobe consolidation and fibrosis similar to prior chest CT. 2. Cardiomegaly. 3. Right inguinal hernia containing bowel loops with upstream dilatation of the small bowel compatible with small-bowel obstruction. 4. Sigmoid diverticulosis without acute diverticulitis. 5. Peripheral enhancement of a left renal cystic lesion which measures 3.1 cm. Nonemergent MRI of the abdomen without and with intravenous contrast using a renal protocol is suggested. EXAM: XR Chest, 1 View FINDINGS: LUNGS AND PLEURAL SPACES: Left basilar atelectasis or pneumonia. No pneumothorax. HEART: Unremarkable. No cardiomegaly. MEDIASTINUM: Unremarkable. Normal mediastinal contour. BONES/JOINTS: Unremarkable. No acute fracture. OTHER FINDINGS: . IMPRESSION: Left basilar atelectasis or pneumonia. Left Hip X-Ray FINDINGS/IMPRESSION: There is no evidence of acute fracture or dislocation. The visualized joint space is well maintained. The alignment is anatomic. Vascular calcifications noted. Degenerative changes in the hips. Assessment/Plan Assessment/Plan Assessment: Possible SBO (small bowel obstruction), Right inguinal hernia, Left renal cysts, Diverticulosis, Hypertension, Hyperlipidemia, COPD, Plan: Admit to Tele, Surgical consult, Place NG Tube to LIS, IV antibiotics, IV hydration, NPO, Home medications held due to NPO, Plan discussed with: Patient My Orders Orders - JAVIER YOUNG STUDENT SPECIALIST Procedure Category Date Status Time * Surgical Consult CONS 07/06/24 Transmitted 11:40 Admit ADMIT 07/06/24 Transmitted 11:40 Code Status CODE 07/06/24 Transmitted 11:40 Sodium Chloride 0.9% PHA 07/06/24 Logged 11:45 Ondansetron Hcl PHA 07/06/24 Logged (Zofran) 11:45 Fall Risk Precautions [facility] 07/06/[address] 11:40 Complete Blood Count LAB 07/07/24 Verified 04:00 Comprehensive LAB 07/07/24 Verified Metabolic Panel 04:00 Npo (Nothing By DIET 07/06/24 Transmitted Mouth) Diet Lunch Condition: Serious [facility]VIN 07/06/24 In Process 11:40 Nitroglycerin PHA 07/06/24 Logged Sublingual (Ntrostat 11:45 Morphine Sulfate PHA 07/06/24 Logged Injection 11:45 Stat Ekg For Chest [facility] 07/06/24 In Process Pain 11:40 Notify Md Of Changes [facility] 07/06/24 In Process From Base 11:40 Tension Worker For [facility] 07/06/24 In Process 24 Hours 11:40 Emergency Dysrhythmia [facility] 07/06/24 In Process Protocol 11:40 Rhythm Strips Once [facility] 07/06/24 In Process Every Shift 11:40 Oxygen By Nasal RT 07/06/24 Transmitted Cannula 11:40 Ng To Lis [facility] 07/06/24 In Process 11:46 Place Ng ORDERS 07/06/24 Transmitted 11:46 Metronidazole PHA 07/06/24 Logged 500mg/100ml (Flagyl 14:00 Ceftriaxone 1gm/50ml PHA 07/07/24 Logged D5w (Rocephin) 09:00 Ceftriaxone 1gm/50ml PHA 07/06/24 Logged D5w (Rocephin) 12:00 Date of Service: Jul 06, 2024 Billing Provider: JAVIER YOUNG Common Visit Codes: [id number] INP/OBS CARE (MOD) JAVIER YOUNG Jul 06, 2024 12:17
--- NOTE | 2024-07-06 13:25 | DVHINCON2 ---
Date of service: Jul 06, 2024 History of Present Illness 88-year-old male with a history of coronary artery disease status post CABG years ago now complaining of sudden onset of left flank pain that began yesterd ay. Patient denies any fevers, chills, nausea or vomiting. Patient reports normal bowel movement yesterday. Past Medical History Coronary artery disease with a history of [place]. COPD. Past Surgical History CABG Family History: Cardiovascular disease G8 SISTER G8 FATHER Family History Noncontributory Social History Denies smoking. Reports two glasses of wine a day. Denies any IV drug use. Allergies: Coded Allergies: NO KNOWN ALLERGIES (Unverified , 03/25/23) Home Meds Reported Medications Rosuvastatin Calcium (Rosuvastatin Calcium) 10 Mg Tab, 10 MG PO DAILY, TAB 11/13/22 Hydrocodone-Acetaminophen (Hydrocodone Bitartrate/AC 5-325 mg) 1 Tab Tab, 1 TAB PO PRN, TAB 11/13/22 Ropinirole Hydrochloride (Ropinirole Hcl) 3 Mg Tab, 3 MG PO QPM, TAB 11/13/22 Ropinirole Hydrochloride (Ropinirole Hcl) 0.25 Mg Tab, 0.25 MG PO, TAB 04/05/22 Aspirin (Aspir-81) 81 Mg Tab, 1 TAB PO DAILY, #30 TAB 5 Refills 04/05/22 Gabapentin (Gabapentin) 100 Mg Cap, 1 CAP PO TID, #90 CAP 2 Refills 04/05/22 Atorvastatin Calcium (Lipitor) 10 Mg Tab, 1 TAB PO QPM, #90 TAB 1 Refill 04/05/22 Discontinued Scripts Clindamycin HCl (Clindamycin Hydrochloride) 300 Mg Cap, 300 MG PO Q8HR for 7 Days, #21 CAP Prov:BEVERLEY ISAAC MD 11/13/22 Erythromycin (Erythromycin) 5 Mg/Gm Oin, 1 APPLIC OP Q6H for 10 Days, #1 OIN Prov:BEVERLEY ISAAC MD 04/05/22 Current Medications Current Medications Medications (Trade) Dose Ordered Sig/Perez Route PRN Reason Start Time Stop Time Status Last Admin Sodium Chloride 1,000 ml @ 60 mls/hr [id number] IV 07/06/24 11:45 UNV Ondansetron HCl (Zofran) 4 mg Q4HP PRN IV NAUSEA / VOMITING 07/06/24 11:45 UNV Nitroglycerin (Ntrostat Sublingual) 0.4 mg Q5MINP PRN SL FOR CHEST PAIN 07/06/24 11:45 UNV Morphine Sulfate 2 mg Q30M PRN IV FOR CHEST PAIN 07/06/24 11:45 UNV Metronidazole 100 ml @ 100 mls/hr Q8HR IV 07/06/24 14:00 UNV Ceftriaxone Sodium 50 ml @ 100 mls/hr DAILY@09 IV 07/07/24 09:00 UNV Vital Signs Vital Signs Date Time Temp Pulse Resp B/P (MAP) Pulse Ox O2 Delivery O2 Flow Rate FiO2 07/06/24 11:51 63 15 144/72 (96) 97 07/06/24 08:09 97.8 97.8 Physical Exam GEN: Elderly frail male in no acute distress. Alert. HEENT: Normocephalic atraumatic. Moist mucous membranes. Anicteric sclerae. CV: RRR Respiratory: Coarse breath sounds Abdominal: Soft. Nondistended. Nontender. No left flank tenderness CT of the abdomen and pelvis: Cardiomegaly. Large right inguinal hernia containing bowel loops with upstream dilatation of small bowel compatible with small-bowel obstruction. Sigmoid diverticulosis without diverticulitis. Left renal cystic lesion measuring 3.1 cm. Labs/Diagnostic Data Labs Test 07/06/24 07:42 07/06/24 07:21 07/06/24 06:47 Range/Units Troponin I High Sensitivity 14 </=54 ng/L Urine Color Light-yellow Yellow Urine Clarity Clear Clear Urine pH 5.5 5.0-9.0 Urine Specific [place] 1.031 1.001-1.035 Urine Protein Negative Negative Urine Ketones Negative Negative Urine Blood Negative Negative /uL Urine Nitrite Negative Negative Urine Bilirubin Negative Negative Urine Urobilinogen Normal Negative mg/dL Urine Leukocyte Esterase Negative Negative /uL Urine RBC 2 0 - 3 /hpf Urine Microscopic WBC < 1 0-3 /HPF Urine Squamous Epithelial Cells None seen <5 /hpf Urine Bacteria None seen None Seen /hpf Urine Glucose 4+ H Normal mg/dL White Blood Count 7.4 4.4-10.8 10^3/uL Red Blood Count 4.35 L 4.5-5.90 10^6/uL Hemoglobin 13.7 13.5-17.5 g/dL Hematocrit 40.2 L 41.0-53.0 % Mean Corpuscular Volume 92.4 80.0-100.0 fL Mean Corpuscular Hemoglobin 31.5 28.0-32.0 pg Mean Corpuscular Hemoglobin Concent 34.1 32.0-36.0 g/dL Red Cell Distribution Width 13.9 11.8-14.3 % Platelet Count 103 L 140-450 10^3/uL Mean Platelet Volume 8.5 6.9-10.8 fL Neutrophils (%) (Auto) 72.9 37.0-80.0 % Lymphocytes (%) (Auto) 11.8 10.0-50.0 % Monocytes (%) (Auto) 13.1 H 0.0-12.0 % Eosinophils (%) (Auto) 1.5 0.0-7.0 % Basophils (%) (Auto) 0.7 0.0-2.0 % Neutrophils # (Auto) 5.4 1.6-8.6 10 ^3/uL Lymphocytes # (Auto) 0.9 0.4-5.4 10 ^3/uL Monocytes # (Auto) 1.0 0-1.3 10 ^3/uL Eosinophils # (Auto) 0.1 0-0.8 10 ^3/uL Basophils # (Auto) 0.1 0-0.2 10 ^3/uL Nucleated Red Blood Cells 0.0 % Sodium Level 141 136-145 mmol/L Potassium Level 4.2 3.5-5.1 mmol/L Chloride Level 106 98-107 mmol/L Carbon Dioxide Level 30 20-31 mmol/L Anion Gap 5 5-15 Blood Urea Nitrogen 21 9-23 mg/dL Creatinine 0.97 0.700-1.30 mg/dL Glomerular Filtration Rate Calc 76 >90 mL/min BUN/Creatinine Ratio 21.6 H 10.0-20.0 Serum Glucose 101 74-106 mg/dL Lactic Acid Level 0.8 0.4-2.0 mmol/L Calcium Level 9.2 8.7-10.4 mg/dL Total Bilirubin 0.6 0.2-1.0 mg/dL Aspartate Amino Transferase (AST) 18 13-40 U/L Alanine Aminotransferase (ALT) 23 7-40 U/L Alkaline Phosphatase 108 46-116 U/L B-Type Natriuretic Peptide 165.40 0-100 pg/mL Total Protein 6.4 5.7-8.2 g/dL Albumin 4.3 3.2-4.8 g/dL Assessment A: 1. left flank pain poss from left renal mass? 2. large RIH with SM involvement poss SBO but unlikely 3. CAD Plan/Recommendation P: 1. SBFT with gastrografin. if neg, no need for surgery for RIH 2. urology consult for left renal mass Plan discussed with: Patient ABENA GIMENEZ MD Jul 06, 2024 13:25
[2024-07-06] MEDS: GASTROGRAFIN 120 ML SOL ONE (14:42)
[2024-07-06] MEDS: metroNIDAZOLE 500MG/100ML 100 ML IV SCH (16:00)
--- NOTE | 2024-07-06 16:05 | DVH ---
Procedure: XY SMALL BOWEL SERIES-W GASTROGRA Reason for study/Clinical History: SBO Comparison Study: None available at time of dictation. Technique: Single contrast small bowel series performed. FINDINGS/IMPRESSION: Initial entry driver operator view of the abdomen and pelvis appears demonstrates no acute process. Contrast is identified within the colon by 1 hour. This represents a normal small bowel transit time .
[2024-07-06 22:20] VITALS: BP 127/68; PULSE 64; PULSE 68; RESP 18; RESP 20; TEMP 97.7; O2SAT 95
[2024-07-07 01:00] VITALS: BP 147/77; PULSE 66; RESP 18; TEMP 97.6; O2SAT 99
[2024-07-07] MEDS ORDERED: MORPHINE SULFATE INJ 2 MG/ml SYRG IV PRN (03:00)
[2024-07-07 07:27] LABS: Alanine Aminotransferase 16 U/L (7-40); Alkaline Phosphatase 96 U/L (46-116); Anion Gap 8 (5-15); Blood Urea Nitrogen 17 mg/dL (9-23); Calcium 9.4 mg/dL (8.7-10.4); Carbon Dioxide 28 mmol/L (20-31); Chloride 104 mmol/L (98-107); Glucose 74 mg/dL (74-106); Potassium 4.2 mmol/L (3.5-5.1); Sodium 140 mmol/L (136-145)
[2024-07-07 07:28] LABS: Albumin 4.4 g/dL (3.2-4.8); Aspartate Aminotransferase 21 U/L (13-40); Bilirubin, Total 0.9 mg/dL (0.2-1.0); Total Protein 6.6 g/dL (5.7-8.2)
[2024-07-07 07:30] LABS: Basophils # (auto) 0.1 10 ^3/uL (0-0.2); Basophils % (auto) 0.6 % (0.0-2.0); Eosinophils # (auto) 0.1 10 ^3/uL (0-0.8); Eosinophils % (auto) 1.5 % (0.0-7.0); Hematocrit 45.8 % (41.0-53.0); Hemoglobin 15.1 g/dL (13.5-17.5); Lymphocytes # (auto) 0.9 10 ^3/uL (0.4-5.4); Lymphocytes % (auto) 10.5 % (10.0-50.0); Mean Corpuscular Hemoglobin 30.5 pg (28.0-32.0); Mean Corpuscular Hgb Conc. 32.9 g/dL (32.0-36.0); Mean Corpuscular Volume 92.9 fL (80.0-100.0); Monocytes # (auto) 0.9 10 ^3/uL (0-1.3); Monocytes % (auto) 10.1 % (0.0-12.0); Neutrophils # (auto) 6.9 10 ^3/uL (1.6-8.6); Neutrophils % (auto) 77.3 % (37.0-80.0); Nucleated Red Blood Cells % 0.3 %; Platelet Count (auto) 92 10^3/uL (140-450); Red Blood Cells 4.93 10^6/uL (4.5-5.90); Red Cell Distribution Width 13.8 % (11.8-14.3); White Blood Cell 8.9 10^3/uL (4.4-10.8)
[2024-07-07 08:00] VITALS: PULSE 69
[2024-07-07 08:33] VITALS: BP 134/80; PULSE 78; RESP 16; TEMP 97.9; O2SAT 95
[2024-07-07] MEDS: cefTRIAXone 1GM/50ML D5W 50 ML IV SCH (08:36)
--- NOTE | 2024-07-07 10:59 | DVHPN2 ---
Progress Note - Dictate Date Seen: Jul 07, 2024 Medical Necessity Reason Pt with a Central, PICC or Fol: No Subjective E: no major events o/n. no complaints. vital signs Vital Sign Date Time Temp Pulse Resp B/P (MAP) Pulse Ox O2 Delivery O2 Flow Rate FiO2 07/07/24 08:33 97.9 78 16 134/80 (98) 95 97.9 07/06/24 22:20 Room Air* 0 21 Total Intake and Output 07/06/24 07/06/24 07/07/24 15:00 23:00 07:00 Intake Total 3200 ml 100 ml Balance 3200 ml 100 ml medications Current Medications Medications Dose Ordered Sig/Perez Route Start Time Stop Time Status Last Admin Dose Admin Sodium Chloride 1,000 ml @ 60 mls/hr [id number] IV 07/06/24 11:45 07/07/24 04:37 60 MLS/HR Ondansetron HCl 4 mg Q4HP PRN IV 07/06/24 11:45 Nitroglycerin 0.4 mg Q5MINP PRN SL 07/06/24 11:45 Morphine Sulfate 2 mg Q30M PRN IV 07/06/24 11:45 Metronidazole 100 ml @ 100 mls/hr Q8HR IV 07/06/24 14:00 07/07/24 06:31 100 MLS/HR Ceftriaxone Sodium 50 ml @ 100 mls/hr DAILY@09 IV 07/07/24 09:00 07/07/24 08:36 100 MLS/HR Morphine Sulfate 2 mg Q6HPRN PRN IV 07/07/24 03:00 objective GEN: NAD ABD: soft. NT/ND. RIH unchanged. NT. laboratory and microbiology Laboratory Tests 07/07/24 06:35 Test 07/07/24 06:35 Range/Units Serum Glucose 74 74-106 mg/dL Assessment/Plan A: 1. left flank pain poss from left renal mass? 2. large RIH w/o SBO 3. CAD P: 1. full liquid diet. if david, no need for surgery 2. pt says he will f/u with his [place] urologist for left renal cystic mass. Plan discussed with: Patient ABENA GIMENEZ MD Jul 07, 2024 10:59
[2024-07-07 13:00] VITALS: BP 122/79; PULSE 86; RESP 17; TEMP 98.5; O2SAT 98
--- NOTE | 2024-07-07 14:18 | DVHDS2 ---
Discharge Summary Date of Admission Jul 06, 2024 at 11:40 Date of Discharge: Jul 07, 2024 Admitting Diagnosis SBO Labs/Diagnostic Data: Laboratory Results Test 07/07/24 06:35 07/06/24 07:42 07/06/24 07:21 07/06/24 06:47 White Blood Count 8.9 10^3/uL (4.4-10.8) Red Blood Count 4.93 10^6/uL (4.5-5.90) Hemoglobin 15.1 g/dL (13.5-17.5) Hematocrit 45.8 % (41.0-53.0) Mean Corpuscular Volume 92.9 fL (80.0-100.0) Mean Corpuscular Hemoglobin 30.5 pg (28.0-32.0) Mean Corpuscular Hemoglobin Concent 32.9 g/dL (32.0-36.0) Red Cell Distribution Width 13.8 % (11.8-14.3) Platelet Count 92 10^3/uL (140-450) Mean Platelet Volume 8.5 fL (6.9-10.8) Neutrophils (%) (Auto) 77.3 % (37.0-80.0) Lymphocytes (%) (Auto) 10.5 % (10.0-50.0) Monocytes (%) (Auto) 10.1 % (0.0-12.0) Eosinophils (%) (Auto) 1.5 % (0.0-7.0) Basophils (%) (Auto) 0.6 % (0.0-2.0) Neutrophils # (Auto) 6.9 10 ^3/uL (1.6-8.6) Lymphocytes # (Auto) 0.9 10 ^3/uL (0.4-5.4) Monocytes # (Auto) 0.9 10 ^3/uL (0-1.3) Eosinophils # (Auto) 0.1 10 ^3/uL (0-0.8) Basophils # (Auto) 0.1 10 ^3/uL (0-0.2) Nucleated Red Blood Cells 0.3 % Sodium Level 140 mmol/L (136-145) Potassium Level 4.2 mmol/L (3.5-5.1) Chloride Level 104 mmol/L (98-107) Carbon Dioxide Level 28 mmol/L (20-31) Anion Gap 8 (5-15) Blood Urea Nitrogen 17 mg/dL (9-23) Creatinine 1.00 mg/dL (0.700-1.30) Glomerular Filtration Rate Calc 73 mL/min (>90) BUN/Creatinine Ratio 17.0 (10.0-20.0) Serum Glucose 74 mg/dL (74-106) Calcium Level 9.4 mg/dL (8.7-10.4) Total Bilirubin 0.9 mg/dL (0.2-1.0) Aspartate Amino Transferase (AST) 21 U/L (13-40) Alanine Aminotransferase (ALT) 16 U/L (7-40) Alkaline Phosphatase 96 U/L (46-116) Total Protein 6.6 g/dL (5.7-8.2) Albumin 4.4 g/dL (3.2-4.8) Troponin I High Sensitivity 14 ng/L (</=54) Urine Color Light-yellow (Yellow) Urine Clarity Clear (Clear) Urine pH 5.5 (5.0-9.0) Urine Specific [place] 1.031 (1.001-1.035) Urine Protein Negative (Negative) Urine Ketones Negative (Negative) Urine Blood Negative /uL (Negative) Urine Nitrite Negative (Negative) Urine Bilirubin Negative (Negative) Urine Urobilinogen Normal mg/dL (Negative) Urine Leukocyte Esterase Negative /uL (Negative) Urine RBC 2 /hpf (0 - 3) Urine Microscopic WBC < 1 /HPF (0-3) Urine Squamous Epithelial Cells None seen /hpf (<5) Urine Bacteria None seen /hpf (None Seen) Urine Glucose 4+ mg/dL (Normal) Lactic Acid Level 0.8 mmol/L (0.4-2.0) B-Type Natriuretic Peptide 165.40 pg/mL (0-100) Other Laboratory Tests 07/07/24 06:35 Brief Hx & Hospital Course: 88-year-old male with a history of coronary artery disease status post CABG years ago now complaining of sudden onset of left flank pain that began yesterday. Patient denies any fevers, chills, nausea or vomiting. Patient reports normal bowel movement yesterday. Patient underwent small bowell series, which was normal. Pain has resolved after bowel movements. Patient reports he has a Urologist with the [facility] who he will followup with about his kidney mass. Operations or Procedures Exam: CT CT CHEST/AB/PL W CON- IV ONLY History: Possible pna LLQ ab pain. Hx of hernia Comparison Study: CT scan of the chest abdomen pelvis dated 01/28/2024. Technique: Multidetector CT of the chest, abdomen and pelvis was performed from lower neck to pubic symphysis. 100 mL of Omnipaque 300 intravenous contrast was administered during this examination. Coronal and sagittal multiplanar reformats were performed by the technologist on a separate workstation. Radiation Dose Information: CT Dose: CTDI volume is 8.7 mGy. Dose-length product is 46.1 mGy*cm Findings: Lower neck: The thyroid is unremarkable. Lungs: Right lower lobe opacities and honeycombing which is similar to prior study. There is cyst in the right lower lobe measuring 1.1 cm. Central airways: Patent. Pleura: No pneumothorax. No pleural effusion. Heart/Vascular Structures: The heart is mildly enlarged. No pericardial effusion. Coronary artery calcifications. Normal caliber thoracic aorta. No aneurysm or dissection. Atherosclerotic calcifications in the aortic arch. No evidence of pulmonary embolism. Normal caliber main pulmonary artery. Lymph Nodes: No adenopathy Liver: The liver is normal in size. No focal lesions. Normal hepatic vascular enhancement. Gallbladder and Biliary Tree: Gallbladder is unremarkable. No biliary ductal dilatation. Spleen: Unremarkable Pancreas: The pancreas is normal in appearance without focal lesions or abnormal enhancement. Adrenal Glands: Unremarkable Kidneys: Kidneys demonstrate normal symmetric enhancement without focal lesions, calculi or hydronephrosis. There is a cystic mass in the lower pole of the left kidney with enhancement of its wall. This measures 3.1 cm. Bladder: Unremarkable Stomach and bowel: The stomach is unremarkable. Right lower quadrant inguinal hernia is present containing loops of small bowel and ascending colon. There is upstream dilatation and fluid distention of small-bowel loops. Extensive sigmoid diverticulosis without acute diverticulitis. The appendix is not visualized however no inflammatory changes noted. Intraperitoneal cavity: No pneumoperitoneum. No ascites. Lymphadenopathy: No mesenteric, retroperitoneal or periportal lymphadenopathy. Mesentery: Unremarkable. Soft tissues: The right inguinal hernia also contains mesenteric vasculature and fat. Vasculature: Extensive tortuosity of the abdominal aorta with atherosclerotic calcifications. No high-grade stenosis, aneurysm or occlusion. Atherosclerotic calcifications in the main aortic branches. Pelvic Organs: Prostate is enlarged. Seminal vesicles are unremarkable. Multilevel lumbar spondylosis. Multilevel thoracic spondylosis. S shaped thoracolumbar scoliosis. Status post median sternotomy. Musculoskeletal: No aggressive focal bony lesions, acute fractures or dislocation. IMPRESSION: 1. Patchy right lower lobe consolidation and fibrosis similar to prior chest CT. 2. Cardiomegaly. 3. Right inguinal hernia containing bowel loops with upstream dilatation of the small bowel compatible with small-bowel obstruction. 4. Sigmoid diverticulosis without acute diverticulitis. 5. Peripheral enhancement of a left renal cystic lesion which measures 3.1 cm. Nonemergent MRI of the abdomen without and with intravenous contrast using a renal protocol is suggested. Condition at Discharge: Poor Final Diagnosis/Problems List SBO Kidney Mass- Patient reports he has a Urologist with the [facility] who he will see Discharge Disposition: Home Discharge Instruct/Medications Diet: Regular Activity: Light activity Follow Up/Referral: [facility] Urologist Discharge Statement: "Patient was advised to return to the ER or call 911 if any headaches, dizziness, shortness of breath, chest pain, abdominal pain, bleeding, fevers, or worsening of medical condition. Patient was counseled about treatment plan, medications, possible side effects, patientverbalized understanding. All questions were answered to the best of my ability. This discharge took greater then 30 minutes in planning, reviewing documentation, counseling the patient, and discussing with other team members." ASSESSMENT ASSESSMENT Assessment Date of Service: Jul 07, 2024 Billing Provider: BEVERLEY ISAAC MD Common Visit Codes: 48267-FVW/OBS DISCH DAY >30min BEVERLEY ISAAC MD Jul 07, 2024 14:18
[2024-07-07 16:44] VITALS: BP 145/87; PULSE 67; RESP 17; TEMP 98.6; O2SAT 96
[2024-07-07 17:53] VITALS: BP 145/87; PULSE 67; RESP 17; TEMP 98.6; O2SAT 96
== END 2024-07-07 18:36 | disposition home or self-care (01) | DRG 395 ==
LOC: EDUNIT# 05:31 → ER 05:31 → EDBD 05:31 → OVERFLOW 11:40 → TELE-WESTW 11:42
PROVIDERS: ADMIT Internal Medicine; ATTEND Internal Medicine
DX: K40.30 Unilateral inguinal hernia, with obstruction, without gangrene, not specified as recurrent (principal); I25.10 Atherosclerotic heart disease of native coronary artery without angina pectoris; J44.9 Chronic obstructive pulmonary disease, unspecified; N28.1 Cyst of kidney, acquired; K57.30 Diverticulosis of large intestine without perforation or abscess without bleeding; E78.5 Hyperlipidemia, unspecified; N28.89 Other specified disorders of kidney and ureter; I10 Essential (primary) hypertension; Z95.1 Presence of aortocoronary bypass graft; Z87.891 Personal history of nicotine dependence; Z79.899 Other long term (current) drug therapy; Z82.49 Family history of ischemic heart disease and other diseases of the circulatory system; I25.2 Old myocardial infarction
CPT/HCPCS: 36415; 71045; 71260; 73502; 74177; 74250; 80053; 81001; 83605; 83880; 84484; 85025; 96365; 96367; 96368; G0378; J3490

== ENCOUNTER → 2024-07-26 | Outpatient (CLI) | payer OTHER ==
[~2024-07-26] MED LIST changes: -CLIN-203 PO; -ERY05OO OP
[2024-07-26 12:49] LABS: Basophils # (auto) 0 10 ^3/uL (0-0.2); Basophils % (auto) 0.4 % (0.0-2.0); Eosinophils # (auto) 0.1 10 ^3/uL (0-0.8); Eosinophils % (auto) 1.2 % (0.0-7.0); Hematocrit 40.6 % (41.0-53.0); Hemoglobin 13.6 g/dL (13.5-17.5); Lymphocytes # (auto) 1.2 10 ^3/uL (0.4-5.4); Lymphocytes % (auto) 14.5 % (10.0-50.0); Mean Corpuscular Hemoglobin 30.8 pg (28.0-32.0); Mean Corpuscular Hgb Conc. 33.4 g/dL (32.0-36.0); Mean Corpuscular Volume 92.2 fL (80.0-100.0); Monocytes % (auto) 11.3 % (0.0-12.0); Neutrophils # (auto) 6.2 10 ^3/uL (1.6-8.6); Neutrophils % (auto) 72.6 % (37.0-80.0); Platelet Count (auto) 181 10^3/uL (140-450); Red Cell Distribution Width 14.4 % (11.8-14.3); White Blood Cell 8.6 10^3/uL (4.4-10.8)
[2024-07-26 13:29] LABS: Alanine Aminotransferase 16 U/L (7-40); Albumin 4.1 g/dL (3.2-4.8); Alkaline Phosphatase 91 U/L (46-116); Anion Gap 6 (5-15); Aspartate Aminotransferase 16 U/L (13-40); BUN/Creatinine Ratio 15.2 (10.0-20.0); Blood Urea Nitrogen 14 mg/dL (9-23); Calcium 9.1 mg/dL (8.7-10.4); Carbon Dioxide 29 mmol/L (20-31); Chloride 106 mmol/L (98-107); Cholesterol 114 mg/dL (< 200); Glucose 96 mg/dL (74-106); LDL Cholesterol 50 mg/dL (< 100); Potassium 4.2 mmol/L (3.5-5.1); Sodium 141 mmol/L (136-145); Total Protein 6.3 g/dL (5.7-8.2); Triglycerides 57 mg/dL (< 150)
[2024-07-26 13:30] LABS: Bilirubin, Total 0.7 mg/dL (0.2-1.0); HDL Cholesterol 53 mg/dL (40-59)
== END | disposition home or self-care (01) ==
LOC: LAB 12:25
PROVIDERS: ATTEND Nurse Practitioner Family
DX: E78.5 Hyperlipidemia, unspecified (principal); I25.5 Ischemic cardiomyopathy; R35.1 Nocturia; Z00.01 Encounter for general adult medical examination with abnormal findings
CPT/HCPCS: 36415; 80053; 80061; 84153; 84443; 85025

== ENCOUNTER 2024-11-13 17:48 | Emergency (ER) | payer OTHER ==
[~2024-11-13] VITALS: Ht 165.1 cm; Wt 49.6 kg
--- NOTE | 2024-11-13 18:47 | ED.PDOC ---
Back pain HPI HPI Comments This is a 89 year old male presenting to the ED with chief complaint of back pain. Patient reports that he has been dealing with chronic back pain from kyphosis for some time, however, 2 days ago he begun to experience severe back pain with associated bilateral knee pain. Patient relays that he took a Codeine he had been prescribed before today, resolving his pain completely, but he wants his points of pain to be examined just in case. Patient denies any fall, injury, or any further symptoms. Chief Complaint: Back Pain Time Seen by MD: 18:44 Primary Care Provider: Baljit JOHANSEN Reviewed Notes: Nurses Notes, Medications, Allergies Allergies: Coded Allergies: NO KNOWN ALLERGIES (Unverified , 03/25/23) Home Meds Reported Medications Rosuvastatin Calcium (Rosuvastatin Calcium) 10 Mg Tab, 10 MG PO DAILY, TAB 11/13/22 Hydrocodone-Acetaminophen (Hydrocodone Bitartrate/AC 5-325 mg) 1 Tab Tab, 1 TAB PO PRN, TAB 11/13/22 Ropinirole Hydrochloride (Ropinirole Hcl) 3 Mg Tab, 3 MG PO QPM, TAB 11/13/22 Ropinirole Hydrochloride (Ropinirole Hcl) 0.25 Mg Tab, 0.25 MG PO, TAB 04/05/22 Aspirin (Aspir-81) 81 Mg Tab, 1 TAB PO DAILY, #30 TAB 5 Refills 04/05/22 Gabapentin (Gabapentin) 100 Mg Cap, 1 CAP PO TID, #90 CAP 2 Refills 04/05/22 Atorvastatin Calcium (Lipitor) 10 Mg Tab, 1 TAB PO QPM, #90 TAB 1 Refill 04/05/22 Information Source: Patient Mode of Arrival: Ambulatory Timing: Days Duration: Since onset Location of Back pain: (B) Upper back Severity: Moderate Prehospital treatment: None Quality: Aching Onset: Spontaneous History of: Chronic Back Pain Past Medical History PAST MEDICAL HISTORY: CAD, COPD, High Lipids, HTN, [place] Past Medical History (Other): Kyphosis Surgical History: CABG, Tonsillectomy Family History Family History: Reviewed,noncontributory to illness, Family hx of heart kwan Social History Smoker: Quit Greater Than 1 Year Alcohol: Heavy Drugs: Denies Drug Use Lives In: Home Constitutional: denies: chills, diaphoresis, fatigue, fever, malaise, sweats, weakness, others EENTM: denies: blurred vision, double vision, ear bleeding, ear discharge, ear drainage, ear pain, ear ringing, eye pain, eye redness, hearing loss, mouth pain, mouth swelling, nasal discharge, nose bleeding, nose congestion, nose pain, photophobia, tearing, throat pain, throat swelling, voice changes, others Respiratory: denies: cough, hemoptysis, orthopnea, SOB at rest, shortness of breath, SOB with excertion, stridor, wheezing, others Cardiovascular: denies: chest pain, dizzy spells, diaphoresis, Dyspnea on exertion, edema, irregular heart beat, left arm pain, lightheadedness, palpitations, PND, syncope, others Gastrointestinal: denies: abdomen distended, abdominal pain, blood streaked bowels, constipated, diarrhea, dysphagia, difficulty swallowing, hematemesis, melena, nausea, poor appetite, poor fluid intake, rectal bleeding, rectal pain, vomiting, others Genitourinary: denies: burning, dysuria, flank pain, frequency, hematuria, incontinence, penile discharge, penile sore, pain, testicle pain, testicle swelling, urgency, others Neurological: denies: dizziness, fainting, headache, left sided numbness, left sided weakness, numbness, paresthesia, pre-existing deficit, right sided numbness, right sided weakness, seizure, speech problems, tingling, tremors, weakness, others Musculoskeletal: reports: back pain, joint pain; denies: gout, joint swelling, muscle pain, muscle stiffness, neck pain, others Integumetry: denies: bruises, change in color, change in hair/nails, dryness, laceration, lesions, lumps, rash, wounds, others Allergic/Immunocompromised: denies: Difficulty Healing, Frequent Infections, Hives, Itching, others Hematologic/Lymphatic: denies: anemia, blood clots, easy bleeding, easy bruising, swollen glands, others Endocrine: denies: excessive hunger, excessive sweating, excessive thirst, excessive urination, flushing, intolerance to cold, intolerance to heat, unexplained weight gain, unexplained weight loss, others Psychiatric: denies: anxiety, bipolar disorder, depression, hopeless, panic disorder, schizophrenia, sleepless, suicidal, others All Other Systems: Reviewed and Negative Physical Exam General Appearance: No Apparent Distress, Normal HEENT: Normal ENT Inspection, Pharynx Normal, TMs Normal Neck: Full Range of Motion, Non-Tender, Normal, Normal Inspection Respiratory: Chest Non-Tender, Lungs Clear, No Accessory Muscle Use, No Respiratory Distress, Normal Breath Sounds Cardiovascular: No Edema, No JVD, No Murmur, No Gallop, Normal Peripheral Pulses, Regular Rate/Rhythm Breast Exam: Deferred Gastrointestinal: No Organomegaly, Non Tender, No Pulsatile Mass, Normal Bowel Sounds, Soft Genitalia: Deferred Pelvic: Deferred Rectal: Deferred Extremities: No calf tenderness, Normal capillary refill, Normal inspection, Normal range of motion, Non-tender, No pedal edema Musculoskeletal : Apperance: Normal, Other (Kyphosis noted.) Neurologic: Alert, stroboscope operator II-XII nml as Tested, No Motor Deficits, Normal Affect, Normal Mood, No Sensory Deficits Cerebellar Function: Normal Reflexes: Normal Skin: Dry, Normal Color, Warm Lymphatic: No Adenopathy Was a procedure done? Was a procedure done?: No Back Pain Differential Dx Differential Diagnosis: Fracture, Musculoskeletal Pain, Other (strain, djd, sprain, contusions) X-Ray, Labs, Meds, VS Vital Signs Date Time Temp Pulse Resp B/P (MAP) Pulse Ox O2 Delivery O2 Flow Rate FiO2 11/13/24 18:13 97.9 90 16 90/59 (69) 98 97.9 XR L-Spine:FINDINGS: There are no acute fractures or subluxations. Advanced multilevel degenerative changes of the spine. Large volume colonic stool. IMPRESSION: No acute fracture or subluxation. Lt Knee XR: FINDINGS/IMPRESSION: : There is no evidence of acute fracture or dislocation. Calcified athero sclerosis. Mild degenerative medial and lateral compartment joint space narrowing. Rt Knee XR: FINDINGS/IMPRESSION: : There is no evidence of acute fracture or dislocation. There is medial and lateral compartment chondrocalcinosis as well as mild tricompartment osteoarthritis. Mild medial and lateral compartment joint space narrowing. Calcified athero sclerosis. Surgical soft tissue clips project over the medial and posterior aspect of the right knee. Images Reviewed?: Images reviewed and evaluated by me Time of 1ST Reevaluation: 19:43 Reevaluation 1ST: Unchanged Time of 2ND Reevaluation: 19:50 Reevaluation 2ND: Improved Patient Education/Counseling: Diagnosis, Treatment, Prognosis, Need For Follow Up Family Education/Counseling: No Family Present Comments pt has chronic changes consistent with DJD. he is stable for discharge. he reports that he took his norco and has no pain now Additional Information Previous visits reviewed: 07/06/24 for pneumonia The following tests were ordered, and results were reviewed by me: L-Spine XR, Lt knee XR, Rt knee XR Additional Information was gathered from interviewing the following independent historians: N/A I reviewed and agreed with the following test results read by other providers: L-Spine XR, Lt knee XR, Rt knee XR I discussed treatment and results with medical personnel and: patient Comprehensive systems review obtained and negative except for what is stated in the HPI. SEPSIS Sepsis Screen Date sepsis recognized/suspect: Nov 13, 2024 Time Sepsis recognized/suspect: 1812 Recent Procedure: No On Antibiotic Therapy: No Respiratory Rate >20: No Heart Rate >90: No Temp<36 C (96.8 F) or >38.3 C: No SBP <90 or MAP <65 mmHG: No New Acute Mental Status Change: No Is the patient on CPAP, BIPAP,: No Physician Orders R Knee 2v Xray (11/13/24 18:11) L Knee 2v Xray (11/13/24 18:11) Lumbar Spine 3 View (11/13/24 18:11) Vital Signs Date Time Temp Pulse Resp B/P (MAP) Pulse Ox O2 Delivery O2 Flow Rate FiO2 11/13/24 18:13 97.9 90 16 90/59 (69) 98 97.9 Departure 1 Departure Time of Disposition: 19:50 Impression: Primary Impression: Kyphosis Qualified Codes: 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 Electronically submitted by Laron Cole ([email or web address]). I personally scribed for KATHIE HENRY MD ([email or web address]) on 11/13/24 at 19:47. Electronically submitted by Laron Cole ([email or web address]). KATHIE HENRY MD Nov 13, 2024 18:47
--- NOTE | 2024-11-13 19:02 | DVH ---
INDICATION: pain TECHNIQUE: 4 views of the lumbar spine were obtained. COMPARISON: None FINDINGS: There are no acute fractures or subluxations. Advanced multilevel degenerative changes of the spine. Large volume colonic stool. IMPRESSION: No acute fracture or subluxation.
--- NOTE | 2024-11-13 19:13 | DVH ---
CLINICAL INDICATION: Left knee pain TECHNIQUE: XY L KNEE 2V XRAY Comparison: None FINDINGS/IMPRESSION: : There is no evidence of acute fracture or dislocation. Calcified athero sclerosis. Mild degenerative medial and lateral compartment joint space narrowing.
--- NOTE | 2024-11-13 19:14 | DVH ---
CLINICAL INDICATION: Right knee pain TECHNIQUE: XY R KNEE 2V XRAY Comparison: None FINDINGS/IMPRESSION: : There is no evidence of acute fracture or dislocation. There is medial and lateral compartment chondrocalcinosis as well as mild tricompartment osteoarthrit is. Mild medial and lateral compartment joint space narrowing. Calcified athero sclerosis. Surgical soft tissue clips project over the medial and posterior aspect of the right knee.
[2024-11-13 20:24] VITALS: BP 115/68; PULSE 76; RESP 16; TEMP 97.2; O2SAT 96
== END 2024-11-13 20:28 | disposition home or self-care (01) ==
LOC: ER 17:51
DX: M40.04 Postural kyphosis, thoracic region (principal); M17.0 Bilateral primary osteoarthritis of knee; I10 Essential (primary) hypertension; I25.10 Atherosclerotic heart disease of native coronary artery without angina pectoris; J44.9 Chronic obstructive pulmonary disease, unspecified; Z79.899 Other long term (current) drug therapy; Z95.1 Presence of aortocoronary bypass graft; Z90.89 Acquired absence of other organs
CPT/HCPCS: 72100; 73560